=== PATIENT | male | born 1950 | race Two or more races ===

== ENCOUNTER 2016-12-20 23:43 | Inpatient (IN) | payer OTHER ==
[~2016-12-20] VITALS: Ht 170.2 cm; Wt 90.7 kg
--- NOTE | 2016-12-20 23:45 | NUR ---
PT BIB[place] FROM [facility] [place] FOR COUGH AND CONGESTION. PT AOX3 RR EVEN AND UNLABORED. NO SOB NOTED. PT NOTED CONGESTED. NO NVD AT THIS TIME. PT GOWNED AND PLACED ON MONITOR WAITING FOR MD CHAPPELL.
--- NOTE | 2016-12-21 00:12 | NUR ---
IV STARTED ON LEFT AC 18, BLOOD DRAWN AND BLOOD CULTURE COLLECTED.
--- NOTE | 2016-12-21 00:13 | NUR ---
XRAY AT BEDSIDE
[2016-12-21] MEDS ORDERED: ASPI81TA2 PO (00:16)
[2016-12-21] MEDS ORDERED: ALBUTEROL FS 2.5 MG/0.5 ML VIAL.NEB NEB ONE (00:30)
[2016-12-21 00:35] LABS: BASOPHILS % (AUTO) 0.3 % (0.0-2.0); EOSINOPHILS # (AUTO) 0.5 /CMM (0.0-0.7); EOSINOPHILS % (AUTO) 4.2 % (0.0-6.0); HEMATOCRIT 35 % (39-51); HEMOGLOBIN 11.6 g/dL (13.5-17.5); LYMPHOCYTES # (AUTO) 1.8 /CMM (0.8-4.8); LYMPHOCYTES % (AUTO) 15.2 % (20.0-44.0); MEAN CORPUSCULAR HEMOGLOBIN 29 PG (26.0-33.0); MEAN CORPUSCULAR HGB CONC 33 g/dl (31.0-36.0); MEAN CORPUSCULAR VOLUME 87 fL (80-96); MONOCYTES # (AUTO) 0.5 /CMM (0.1-1.30); MONOCYTES % (AUTO) 4.4 % (2.0-12.0); NEUTROPHILS # (AUTO) 9.2 /CMM (1.8-8.9); NEUTROPHILS % (AUTO) 75.9 % (43.0-81.0); PLATELET COUNT (AUTO) 272 /CMM (150-450); RDW COEFFICIENT OF VARIATION 14.9 (11.5-15.0); RED BLOOD CELL COUNT(AUTO) 3.98 MIL/uL (4.5-6.0); WHITE BLOOD COUNT (AUTO) 12.1 K/uL (4.3-11.0)
[2016-12-21] MEDS ORDERED: ALBUTEROL FS 2.5 MG/0.5 ML VIAL.NEB ONE (00:35)
[2016-12-21 00:50] LABS: CALCIUM, SERUM 9.2 mg/dL (8.5-10.1); CARBON DIOXIDE 27 mmol/L (21-32); CHLORIDE 99 mmol/L (98-107); CREATININE 1.4 mg/dL (0.6-1.3); GFR 51 mL/min (>60); GLUCOSE 154 mg/dL (74-106); SODIUM SERUM 133 mmol/L (136-145); UREA NITROGEN, BLOOD 15 mg/dL (7-18)
[2016-12-21 00:52] LABS: TROPONIN I < 0.017 ng/mL (0.00-0.056)
[2016-12-21] MEDS ORDERED: ASCO500C16 PO (00:52)
[2016-12-21] MEDS ORDERED: MAGN400O6 PO (00:52)
[2016-12-21] MEDS ORDERED: SENN8.6T6 PO (00:52)
[2016-12-21] MEDS ORDERED: BACL10TA PO (00:52)
[2016-12-21] MEDS ORDERED: AMLO10TA4 PO (00:52)
[2016-12-21] MEDS ORDERED: SIME80TA15 PO (00:52)
[2016-12-21] MEDS ORDERED: PANT40TA2 PO (00:52)
[2016-12-21] MEDS ORDERED: VITA1TAB34 PO (00:52)
[2016-12-21] MEDS ORDERED: INSU100I19 SQ (00:52)
[2016-12-21] MEDS ORDERED: CHOL100030 PO (00:52)
[2016-12-21] MEDS ORDERED: CLON0.1T PO (00:52)
[2016-12-21] MEDS ORDERED: NA P133E RC (00:52)
[2016-12-21] MEDS ORDERED: BISA10SU61 RC (00:52)
[2016-12-21] MEDS ORDERED: MULT-70 PO (00:52)
[2016-12-21] MEDS ORDERED: DOCU-25 PO (00:52)
[2016-12-21] MEDS ORDERED: ACET-868 PO (00:52)
[2016-12-21] MEDS ORDERED: CITA20TA19 PO (00:52)
[2016-12-21] MEDS ORDERED: LISI-657 PO (00:52)
[2016-12-21 00:55] LABS: INR 0.93 (0.87-1.13)
[2016-12-21 01:05] LABS: ALANINE AMINOTRANSFERASE 30 U/L (12-78); ALBUMIN 3.6 g/dL (3.4-5.0); ALKALINE PHOSPHATASE 92 U/L (46-116); ASPARTATE AMINOTRANSFERASE 13 U/L (15-37); B-TYPE NATRIURETIC PEPTIDE 130 PG/ML (0-125); BILIRUBIN,DIRECT 0.1 mg/dL (0.0-0.2); BILIRUBIN,TOTAL 0.3 mg/dL (0.2-1.0); TOTAL PROTEIN, SERUM 7.4 g/dL (6.4-8.2)
--- NOTE | 2016-12-21 01:06 | NUR ---
URINE COLLECTED. CALLED LAB FOR SENIOR JAVASCRIPT DEVELOPER.
--- NOTE | 2016-12-21 01:34 | NUR ---
REMOVED N/C PER , 02 SAT ROOM AIR 93%. DR. WATERMAN AWARE
[2016-12-21 01:46] LABS: LACTIC ACID 1.9 mmol/L (0.4-2.0)
--- NOTE | 2016-12-21 01:51 | NUR ---
REPORT GIVEN TO HERON GARCIA FOR TELE BED 113-1
[2016-12-21 01:53] LABS: APPEARANCE,URINE CLEAR (CLEAR); BILIRUBIN,URINE NEGATIVE (NEGATIVE); BLOOD, URINE NEGATIVE Ery/uL (NEGATIVE); COLOR,URINE YELLOW (YELLOW); KETONES,URINE NEGATIVE (NEGATIVE); LEUKOCYTE ESTERASE ,URINE TRACE (NEGATIVE); NITRITE, URINE NEGATIVE (NEGATIVE); PROTEIN,URINE NEGATIVE (NEGATIVE); UGLUCOSE NEGATIVE (NEGATIVE); UROBILINOGEN,URINE 0.2 EU/dL (0.2)
[2016-12-21] MEDS ORDERED: IV SET PRIMARY 1 EA INFUS.SET MC ONE (02:00)
[2016-12-21] MEDS ORDERED: IV D5W 50 ML IV ONE (02:00)
[2016-12-21] MEDS ORDERED: CEFTRIAXONE 1 G VIAL ONE (02:00)
[2016-12-21] MEDS ORDERED: CEFTRIAXONE 1GM BAG (ER ONLY) 1 GM/50 ML PIGGYBACK IV ONE (02:00)
--- NOTE | 2016-12-21 03:45 | NUR ---
UNLOADER OPERATOR NOTE RECEIVED PATIENT FROM ER VIA GURNEY, PATIENT IS ALERT AND ORIENTEDX3, ADMITTING DX IS PNA, PATIENT STATED THAT HE IS HAVING DIFFICULTY COUGHING, ON NC 2L/MIN, DENIES PAIN AT THIS TIME. IV ON LEFT AC IS PATENT AND INTACT. MERAZ CATH, CLEAR URINE NOTED. PUT ON TELE MONITOR, SKIN IS INTACT. WILL PUT IN DR. ALVARADO'S ORDER, SRX2, BED IN LOW POSITION, CALL LIGHT WITHIN REACH, WILL CONTINUE TO MONITOR PATIENT.
--- NOTE | 2016-12-21 03:47 | NUR ---
PT TRASNFERED TO [facility] PER [facility] RN'S PER ACLS PROTOCOL.
[2016-12-21 04:00] VITALS: BP 167/87
[2016-12-21] MEDS ORDERED: ALBUTEROL HALF STRENGTH 1.25 MG/3 ML VIAL.NEB NEB PRN (04:00)
[2016-12-21] MEDS ORDERED: IPRATROPIUM NEB FS 0.5 MG/2.5 ML AMPUL.NEB NEB PRN (04:00)
[2016-12-21] MEDS ORDERED: DEXTROSE 50%-WATER 50 ML DISP.SYRIN IV PRN (04:00)
[2016-12-21] MEDS ORDERED: DOXYCYCLINE HYCLATE (100 MG) 100 MG TABLET ONE (04:26)
[2016-12-21] MEDS ORDERED: IPRATROPIUM NEB FS 0.5 MG/2.5 ML AMPUL.NEB ONE (04:27)
[2016-12-21] MEDS ORDERED: ENOXAPARIN SODIUM 40 MG/0.4 ML DISP.SYRIN SQ ONE (04:27)
[2016-12-21] MEDS ORDERED: ALBUTEROL HALF STRENGTH 1.25 MG/3 ML VIAL.NEB ONE (04:29)
[2016-12-21] MEDS: ENOXAPARIN SODIUM 40 MG/0.4 ML DISP.SYRIN SQ SCH (04:35)
[2016-12-21] MEDS: DOXYCYCLINE HYCLATE (100 MG) 100 MG TABLET PO SCH ×2 (04:35→17:20)
[2016-12-21] MEDS: ALBUTEROL HALF STRENGTH 1.25 MG/3 ML VIAL.NEB NEB SCH ×6 (04:38→23:41)
[2016-12-21] MEDS: IPRATROPIUM NEB FS 0.5 MG/2.5 ML AMPUL.NEB NEB SCH ×6 (04:38→23:41)
[2016-12-21] MEDS: BLOOD SUGAR DIAGNOSTIC 1 EACH STRIP VI SCH ×4 (05:44→21:14)
[2016-12-21] MEDS: INSULIN REGULAR, HUMAN 100 UNIT/ML 3 ML VIAL SQ PRN (05:46)
[2016-12-21] MEDS: INSULIN DETEMIR 100 UNIT/ML CARTRIDGE SQ SCH ×3 (05:46→21:17)
[2016-12-21 05:50] LABS: ADD URINE CULTURE NO; BACTERIA,URINE None seen /HPF (None Seen); RBC,URINE NONE SEEN /HPF (0-2); SQUAMOUS EPITHELIAL CELL,UR Few /HPF (None Seen); WBC,URINE 0-2 /HPF (0-3)
--- NOTE | 2016-12-21 06:31 | NUR ---
MANAGER MEDICAL NOTE PATIENT IS RESTING IN BED COMFORTABLY, NO S/S OF RESPIRATORY DISTRESS AND PAIN NOTED. IV ON LEFT FA IS PATENT AND INTACT, HL ONLY. MERAZ CLEAR URINE NOTED. TELE MONITOR SINUS RHYTHM. WILL ENDORSE TO DAY SHIFT NURSE FOR KARL.
[2016-12-21 07:23] LABS: BASOPHILS % (AUTO) 0.3 % (0.0-2.0); EOSINOPHILS # (AUTO) 0.7 /CMM (0.0-0.7); EOSINOPHILS % (AUTO) 6.9 % (0.0-6.0); HEMATOCRIT 35 % (39-51); HEMOGLOBIN 11.5 g/dL (13.5-17.5); LYMPHOCYTES # (AUTO) 1.6 /CMM (0.8-4.8); LYMPHOCYTES % (AUTO) 14.5 % (20.0-44.0); MEAN CORPUSCULAR HEMOGLOBIN 29 PG (26.0-33.0); MEAN CORPUSCULAR HGB CONC 33 g/dl (31.0-36.0); MEAN CORPUSCULAR VOLUME 87 fL (80-96); MONOCYTES # (AUTO) 0.4 /CMM (0.1-1.30); MONOCYTES % (AUTO) 3.8 % (2.0-12.0); NEUTROPHILS # (AUTO) 8.1 /CMM (1.8-8.9); NEUTROPHILS % (AUTO) 74.5 % (43.0-81.0); PLATELET COUNT (AUTO) 273 /CMM (150-450); RDW COEFFICIENT OF VARIATION 15.7 (11.5-15.0); RED BLOOD CELL COUNT(AUTO) 4.01 MIL/uL (4.5-6.0); WHITE BLOOD COUNT (AUTO) 10.8 K/uL (4.3-11.0)
[2016-12-21 07:37] LABS: CREATININE 1.3 mg/dL (0.6-1.3); POTASSIUM 4.2 mmol/L (3.5-5.1)
[2016-12-21 08:00] VITALS: BP 125/68
[2016-12-21] MEDS ORDERED: INSU100V11 SQ (08:00)
--- NOTE | 2016-12-21 08:00 | NUR ---
RN INITIAL NOTE PT RECEIVED IN BED, AWAKE, Ax0 X4, TELE MONITOR SHOWS SR DEGREE AV BLOCK. RESPIRATIONS ARE EVEN AND UNLABORED. SATING WELL ON 2L N/C. SKIN IS WARM AND DRY TO THE TOUCH. IV SITE C/D/I. FLUSHED AND PATENT. NO COMPLAINTS OF PAIN. NO SIGNS OF DISCOMFORT. SAFETY MEASURES IN PLACE, CALL LIGHT WITHIN REACH. WILL CONTINUE TO MONITOR. Addendum: 12/21/16 at 0939 by BRYAN ANDRES RN FIRST DEGREE AV BLOCK
[2016-12-21] MEDS ORDERED: ACETAMINOPHEN 325 MG TABLET PO PRN (10:00)
[2016-12-21] MEDS ORDERED: CLONIDINE HCL 0.1 MG TABLET PO PRN (10:00)
[2016-12-21] MEDS ORDERED: BISACODYL SUPP (10 MG) 10 MG/SUPP.RECT SUPP.RECT RC PRN (10:00)
[2016-12-21] MEDS ORDERED: SIMETHICONE 80 MG TAB.CHEW PO PRN (10:00)
[2016-12-21] MEDS ORDERED: NA PHOS,M-B/NA PHOS,DI-BA 1 EA ENEMA RC PRN (10:00)
[2016-12-21] MEDS ORDERED: INSULIN DETEMIR 100 UNIT/ML CARTRIDGE SQ SCH (10:00)
[2016-12-21] MEDS: MULTIVITAMINS,THERAPEUTIC 1 UDTAB TABLET PO SCH (10:51)
[2016-12-21] MEDS: CHOLECALCIFEROL 1,000 UNIT TABLET (VIT D3) PO SCH (10:51)
[2016-12-21] MEDS: ASPIRIN 81 MG TAB.CHEW PO SCH (10:52)
[2016-12-21] MEDS: CITALOPRAM HYDROBROMIDE 20 MG TABLET PO SCH (10:52)
[2016-12-21] MEDS: VITAMIN B COMP W-C 1 TAB TABLET PO SCH (10:53)
[2016-12-21] MEDS: LISINOPRIL (10MG) 10 MG TABLET PO SCH (10:53)
[2016-12-21] MEDS: AMLODIPINE BESYLATE 10 MG TABLET PO SCH (10:58)
[2016-12-21 12:00] VITALS: BP 127/65
[2016-12-21] MEDS: BACLOFEN (10 MG) 10 MG TABLET PO SCH ×2 (12:45→17:20)
[2016-12-21] MEDS: DOCUSATE SODIUM 100 MG CAPSULE PO SCH ×2 (12:45→17:20)
[2016-12-21] MEDS: *INSULIN REGULAR(HUMULIN R)HUM 100 UNIT/ML VIAL SQ PRN ×2 (12:53→21:18)
[2016-12-21 16:00] VITALS: BP 121/70
--- NOTE | 2016-12-21 16:00 | NUR ---
HERON NOTE CALLED CRISTAL WARNER TO CONFIRM PT'S LEVEMIR DOSAGE. PT RECEIVES 60UNITS ONCE A DAY. Addendum: 12/21/16 at 1911 by DELGADO MYRICK RN [phone] CRISTAL WARNER'S PHONE # SPOKE WITH MELLISSA
[2016-12-21] MEDS: ASCORBIC ACID 500 MG TABLET PO SCH (17:20)
--- NOTE | 2016-12-21 18:43 | NUR ---
RN CLOSING NOTE RN CLOSING NOTE PT RESTING IN BED COMFORTABLY, ALL MD'S ORDERS CARRIED OUT, PT KEPT CLEAN AND DRY, IV SITE C/D/I. ALL SAFETY MEASURES IN PLACE AT ALL TIMES. REPORT WILL BE GIVEN TO PM RN FOR KARL.
[2016-12-21 20:00] VITALS: BP 119/59
[2016-12-21] MEDS: SENNOSIDES 8.6 MG TABLET PO SCH (21:14)
[2016-12-21] MEDS: ATORVASTATIN 10 MG TABLET PO SCH (21:14)
--- NOTE | 2016-12-21 23:41 | NUR ---
RT PT REQUESTED NOT TO WOKEN UP IF SLEEPING IF NO SOB OR DISTRESS IS NOTED. NO SOB OR DISTRESS NOTED ILL CONTINUE TO MONITOR.
[2016-12-22] VITALS: BP 102/57
[2016-12-22] MEDS ORDERED: IV SET PRIMARY PUMP SET 1 EA INFUS.SET MC ONE (02:18)
[2016-12-22] MEDS: CEFTRIAXONE 1 G in IV D5W 50 ML IV SCH (02:20)
[2016-12-22] MEDS: ALBUTEROL HALF STRENGTH 1.25 MG/3 ML VIAL.NEB NEB SCH ×6 (03:54→23:40)
[2016-12-22] MEDS: IPRATROPIUM NEB FS 0.5 MG/2.5 ML AMPUL.NEB NEB SCH ×6 (03:54→23:40)
[2016-12-22] MEDS: ENOXAPARIN SODIUM 40 MG/0.4 ML DISP.SYRIN SQ SCH (03:57)
[2016-12-22 04:01] VITALS: BP 115/62
[2016-12-22] MEDS: BLOOD SUGAR DIAGNOSTIC 1 EACH STRIP VI SCH ×4 (06:31→21:11)
[2016-12-22] MEDS: INSULIN REGULAR, HUMAN 100 UNIT/ML 3 ML VIAL SQ PRN (06:35)
--- NOTE | 2016-12-22 07:30 | NUR ---
initial notes patient is in bed, verbalizing needs, oriented x3. denies pain at this time. breathing even and unlabored with 2l O2 NC. tele monitor reading SR 73 with 1st degree AV block.patient has a butler catheter, patent. no complications. lac iv patent, dressing cdi. assessed needs. discussed plan of care. call light in reach
[2016-12-22 08:00] VITALS: BP 108/69
[2016-12-22] MEDS: CITALOPRAM HYDROBROMIDE 20 MG TABLET PO SCH (08:08)
[2016-12-22] MEDS: DOXYCYCLINE HYCLATE (100 MG) 100 MG TABLET PO SCH ×2 (08:08→17:16)
[2016-12-22] MEDS: VITAMIN B COMP W-C 1 TAB TABLET PO SCH (08:08)
[2016-12-22] MEDS: LISINOPRIL (10MG) 10 MG TABLET PO SCH (08:08)
[2016-12-22] MEDS: DOCUSATE SODIUM 100 MG CAPSULE PO SCH ×3 (08:09→17:14)
[2016-12-22] MEDS: PANTOPRAZOLE 40 MG TABLET.DR PO SCH (08:09)
[2016-12-22] MEDS: AMLODIPINE BESYLATE 10 MG TABLET PO SCH (08:09)
[2016-12-22] MEDS: BACLOFEN (10 MG) 10 MG TABLET PO SCH ×3 (08:09→17:14)
[2016-12-22] MEDS: CHOLECALCIFEROL 1,000 UNIT TABLET (VIT D3) PO SCH (08:09)
[2016-12-22] MEDS: ASCORBIC ACID 500 MG TABLET PO SCH (08:09)
[2016-12-22] MEDS: MULTIVITAMINS,THERAPEUTIC 1 UDTAB TABLET PO SCH (08:09)
[2016-12-22] MEDS: INSULIN DETEMIR 100 UNIT/ML CARTRIDGE SQ SCH ×2 (08:10→21:13)
[2016-12-22] MEDS: ASPIRIN 81 MG TAB.CHEW PO SCH (08:10)
[2016-12-22 12:00] VITALS: BP 105/55
[2016-12-22] MEDS: *INSULIN REGULAR(HUMULIN R)HUM 100 UNIT/ML VIAL SQ PRN ×3 (12:28→21:14)
[2016-12-22] MEDS: MAGNESIUM HYDROXIDE 30 ML UDC PO PRN (12:35)
[2016-12-22 16:00] VITALS: BP 117/57
[2016-12-22] MEDS: LACTOBACILLUS RHAMNOSUS GG 1 EACH CAP.SPRINK PO SCH (17:14)
--- NOTE | 2016-12-22 19:39 | NUR ---
RN CLOSING NOTES LEFT PATIENT IN STABLE CONDITION. CHANGED MERAZ CATHERTER USING STERILE TECHNIQUE.S PATIENT TOLERATED PROCEDURE. HANDED OFF REPORT CALL LIGHT IN REACH,.
[2016-12-22 20:00] VITALS: BP 144/74
[2016-12-22] MEDS: SENNOSIDES 8.6 MG TABLET PO SCH (21:11)
[2016-12-22] MEDS: ATORVASTATIN 10 MG TABLET PO SCH (21:11)
[2016-12-23] VITALS: BP 108/62
[2016-12-23] MEDS: ENOXAPARIN SODIUM 40 MG/0.4 ML DISP.SYRIN SQ SCH (03:18)
[2016-12-23] MEDS: CEFTRIAXONE 1 G in IV D5W 50 ML IV SCH (03:18)
[2016-12-23 04:00] VITALS: BP 145/74
[2016-12-23] MEDS: ALBUTEROL HALF STRENGTH 1.25 MG/3 ML VIAL.NEB NEB SCH ×6 (04:00→23:31)
[2016-12-23] MEDS: IPRATROPIUM NEB FS 0.5 MG/2.5 ML AMPUL.NEB NEB SCH ×6 (04:00→23:31)
[2016-12-23] MEDS: BLOOD SUGAR DIAGNOSTIC 1 EACH STRIP VI SCH (06:34)
[2016-12-23] MEDS: INSULIN REGULAR, HUMAN 100 UNIT/ML 3 ML VIAL SQ PRN ×3 (06:35→17:58)
[2016-12-23 07:38] LABS: CALCIUM, SERUM 9.6 mg/dL (8.5-10.1); CREATININE 1.2 mg/dL (0.6-1.3); POTASSIUM 4.5 mmol/L (3.5-5.1)
[2016-12-23] MEDS: BACLOFEN (10 MG) 10 MG TABLET PO SCH ×3 (08:03→16:11)
[2016-12-23] MEDS: PANTOPRAZOLE 40 MG TABLET.DR PO SCH (08:03)
[2016-12-23] MEDS: METFORMIN 500 MG TABLET PO SCH (08:03)
[2016-12-23] MEDS: CHOLECALCIFEROL 1,000 UNIT TABLET (VIT D3) PO SCH (08:03)
[2016-12-23] MEDS: DOXYCYCLINE HYCLATE (100 MG) 100 MG TABLET PO SCH ×2 (08:03→16:11)
[2016-12-23] MEDS: VITAMIN B COMP W-C 1 TAB TABLET PO SCH (08:03)
[2016-12-23] MEDS: CITALOPRAM HYDROBROMIDE 20 MG TABLET PO SCH (08:04)
[2016-12-23] MEDS: ASPIRIN 81 MG TAB.CHEW PO SCH (08:04)
[2016-12-23] MEDS: LACTOBACILLUS RHAMNOSUS GG 1 EACH CAP.SPRINK PO SCH ×2 (08:04→16:11)
[2016-12-23] MEDS: LISINOPRIL (10MG) 10 MG TABLET PO SCH (08:04)
[2016-12-23] MEDS: DOCUSATE SODIUM 100 MG CAPSULE PO SCH ×3 (08:06→16:11)
[2016-12-23] MEDS: INSULIN DETEMIR 100 UNIT/ML CARTRIDGE SQ SCH ×2 (08:09→21:21)
[2016-12-23 09:13] VITALS: BP 123/63
[2016-12-23 13:04] VITALS: BP 125/60
--- NOTE | 2016-12-23 13:05 | NUR ---
ADDENDUM V/S AT 0900 WAS TAKEN PT. SITTING ON BED.
--- NOTE | 2016-12-23 13:07 | NUR ---
PT. CONSTIPATED WILL GIVE PRN MEDS.
[2016-12-23] MEDS: MAGNESIUM HYDROXIDE 30 ML UDC PO PRN (13:55)
--- NOTE | 2016-12-23 15:00 | NUR ---
ENCOURAGED PT. TO TURN PER PT. HE IS COMFORTABLE SITTING AND NOT ON SIDE POSITION,EXPLAINED IMPORATANCE OF TURNING TO PREVENT SORE,WILL APPLY SKIN OINMENT TO PREVENT SORE.
--- NOTE | 2016-12-23 16:23 | NUR ---
pt. still no bm post dulcolax supp given.per pt. will wait vianey would like to take senokot vianey will endorse.
[2016-12-23 16:24] VITALS: BP 123/60
--- NOTE | 2016-12-23 18:02 | NUR ---
addendum on urine output entered 2400 twice in am.
--- NOTE | 2016-12-23 19:15 | NUR ---
RN INITIAL NOTES RECEIVED PATIENT IN BED, AWAKE AND ALERT. PATIENT DENIES ANY PAIN AND DISCOMFORT AT THIS TIME. ON 2LPM OF O2 VIA NC, RESPIRATION IS EVEN AND UNLABORED WITH NO DISTRESS NOTED. L AC G18, FLUSHED AND PATENT, NO SIGNS OF INFILTRATION NOTED. PATIENT NOTED WITH PRODUCTIVE COUGH AT THIS TIME, ABLE TO EXPECTORATE, NO DISTRESS. PATIENT ABLE TO MOVE HIS BOWELS, X1, LARGE. PATIENT PROVIDED WITH GOOD PERICARE, NO ABDOMINAL DISCOMFORT VERBALIZED. F/C INTACT AND DRAINING WELL WITH CLEAR, YELLOW URINE. PATIENT'S NEEDS ANTICIPATED AND MET. SAFETY AND COMFORT ENSURED. BED IN LOW AND LOCKED POSITION. CALL LIGHT IN REACH. WILL MONITOR.
[2016-12-23 20:00] VITALS: BP 128/74
[2016-12-23] MEDS: SENNOSIDES 8.6 MG TABLET PO SCH (21:21)
[2016-12-23] MEDS: ATORVASTATIN 10 MG TABLET PO SCH (21:21)
[2016-12-24] MEDS: CEFTRIAXONE 1 G in IV D5W 50 ML IV SCH (01:01)
[2016-12-24] MEDS: IPRATROPIUM NEB FS 0.5 MG/2.5 ML AMPUL.NEB NEB SCH ×5 (03:27→20:20)
[2016-12-24] MEDS: ALBUTEROL HALF STRENGTH 1.25 MG/3 ML VIAL.NEB NEB SCH ×5 (03:28→20:20)
[2016-12-24 04:00] VITALS: BP 117/76
[2016-12-24] MEDS: ENOXAPARIN SODIUM 40 MG/0.4 ML DISP.SYRIN SQ SCH (05:16)
--- NOTE | 2016-12-24 06:46 | NUR ---
RN CLOSING NOTES PATIENT WITH NO ACUTE DISTRESS OBSERVED OVERNIGHT. OCCASIONAL EPISODES OF COUGHING NOTED, BREATHING TREATMENT GIVEN ORDERED, PATIENT COMPLIANT. PATIENT'S NEEDS ANTICIPATED AND MET. PATIENT KEPT CLEAN AND DRY. F/C INTACT AND DRAINING WELL. GOOD PERICARE AT ALL TIMES. TURNED AND REPOSITIONED. ALL DUE MEDS GIVEN ORDERED. NEEDS ANTICIPATED AND MET. SAFETY AND COMFORT ENSURED. BED IN LOW AND LOCKED POSITION. CALL LIGHT IN REACH. WILL ENDORSE ACCORDINGLY FOR CONTINUITY OF CARE.
--- NOTE | 2016-12-24 07:36 | NUR ---
MS RN NOTE RECEIVED REPORT FROM IRRIGATOR VALVE PIPE NURSE. PT RESTING COMFORTABLY IN BED, WITH NO APPARENT DISTRESS. DENIES COMPLAINTS. WILL CONTINUE TO MONITOR.
[2016-12-24 08:00] VITALS: BP 135/77
[2016-12-24 08:07] LABS: CALCIUM, SERUM 9.3 mg/dL (8.5-10.1); CREATININE 1.3 mg/dL (0.6-1.3); POTASSIUM 4.5 mmol/L (3.5-5.1)
[2016-12-24] MEDS: METFORMIN 500 MG TABLET PO SCH (08:22)
[2016-12-24] MEDS: DOCUSATE SODIUM 100 MG CAPSULE PO SCH ×3 (08:22→16:42)
[2016-12-24] MEDS: DOXYCYCLINE HYCLATE (100 MG) 100 MG TABLET PO SCH ×2 (08:22→16:42)
[2016-12-24] MEDS: CHOLECALCIFEROL 1,000 UNIT TABLET (VIT D3) PO SCH (08:22)
[2016-12-24] MEDS: LACTOBACILLUS RHAMNOSUS GG 1 EACH CAP.SPRINK PO SCH ×2 (08:22→16:42)
[2016-12-24] MEDS: BACLOFEN (10 MG) 10 MG TABLET PO SCH ×3 (08:22→16:42)
[2016-12-24] MEDS: PANTOPRAZOLE 40 MG TABLET.DR PO SCH (08:22)
[2016-12-24] MEDS: VITAMIN B COMP W-C 1 TAB TABLET PO SCH (08:22)
[2016-12-24] MEDS: ASPIRIN 81 MG TAB.CHEW PO SCH (08:22)
[2016-12-24] MEDS: LISINOPRIL (10MG) 10 MG TABLET PO SCH (08:23)
[2016-12-24] MEDS: BLOOD SUGAR DIAGNOSTIC 1 EACH STRIP VI SCH (08:23)
[2016-12-24] MEDS: Z GUARD REMEDY 2 OZ OINT TP SCH (08:23)
[2016-12-24] MEDS: INSULIN DETEMIR 100 UNIT/ML CARTRIDGE SQ SCH ×2 (08:25→21:18)
[2016-12-24] MEDS: CITALOPRAM HYDROBROMIDE 20 MG TABLET PO SCH (09:28)
[2016-12-24 16:00] VITALS: BP 120/67
--- NOTE | 2016-12-24 18:38 | NUR ---
MS RN NOTE PT RESTING COMFORTABLY IN BED, WITH NO APPARENT DISTRESS. DENIES COMPLAINTS. PT ON 2L NC, NO SOB. F/C INTACT AND PATENT. WILL ENDORSE TO DOFFER RN FOR KARL.
--- NOTE | 2016-12-24 19:30 | NUR ---
MS RN OPENING NOTES: PATIENT IN BED, AOX4, ON O2 AT 2 LPM VIA NC. BREATHING EVEN AND UNLABORED. BREATH SOUNDS CLEAR TO AUSCULTATION. DENIES ANY PAIN OR DIFFICULTY BREATHING. PATIENT HAS MERAZ CATHETER DRAINING CLEAR YELLOW URINE. PIV ACCESS OVER LAC G 18 INTACT AND PATENT TO FLUSH. PROVIDED FOR COMFORT AND SAFETY. WILL CONT TO MONITOR.
[2016-12-24 20:00] VITALS: BP 141/77
[2016-12-24] MEDS: ATORVASTATIN 10 MG TABLET PO SCH (21:17)
[2016-12-24] MEDS: SENNOSIDES 8.6 MG TABLET PO SCH (21:17)
[2016-12-24] MEDS: *INSULIN REGULAR(HUMULIN R)HUM 100 UNIT/ML VIAL SQ PRN (21:19)
--- NOTE | 2016-12-24 22:15 | NUR ---
RNN OTES: PATIENT'S BLOOD SUGAR CHECKED AT 190 MG/DL. ADMINSTERED SCHEDULED LEVEMIR 30 UNITS WITH REGULAR INSULIN 3 UNITS SQ. WILL CONT TO MONITOR.
[2016-12-25] MEDS: CEFTRIAXONE 1 G in IV D5W 50 ML IV SCH (01:21)
[2016-12-25] MEDS: ENOXAPARIN SODIUM 40 MG/0.4 ML DISP.SYRIN SQ SCH (03:40)
[2016-12-25] MEDS: IPRATROPIUM NEB FS 0.5 MG/2.5 ML AMPUL.NEB NEB SCH ×4 (03:59→10:31)
[2016-12-25] MEDS: ALBUTEROL HALF STRENGTH 1.25 MG/3 ML VIAL.NEB NEB SCH ×4 (03:59→10:31)
--- NOTE | 2016-12-25 06:56 | NUR ---
MS RN CLOSING NOTES: PATIENT IN BED, AOX4, ON O2 AT 2 LPM VIA NC, BREATHING EVEN AND UNLABORED. NOTED OCCASIONAL NON PRODUCTIVE COUGH. APPEARS CALM AND IN NO DISTRESS, DENIES PAIN OR DIFFICULTY IN BREATHING. MERAZ CATHETER IN PLACE DRAINING CLEAR YELLOW URINE, DRAINED TOTAL OF 2000 ML THROUGH SHIFT. PIV ACCESS OVER LAC G 18 INTACT AND PATENT TO FLUSH. DUE MEDS GIVEN, PROVIDED FOR COMFORT AND SAFETY, TURNED AND REPOSITIONED. NO ACUTE CHANGE IN CONDITION NOTED THROUGH SHIFT. WILL ENDORSE TO AM RN FOR KARL.
--- NOTE | 2016-12-25 07:15 | NUR ---
RN INITIAL NOTES: Received patient on bed during rounds, awake, alert x3-4, german speaking able to make needs known, call lights placed within reached, needs attended and anticipated. With IV Plug over LAC, flushed with NS and patent. With Godinez Catheter in placed draining with yellow urine, no sediments, no hematuria, no foul odor noted. HOB elevated, aspiration precaution observed. NO SOB, No LOC, respirations are even and unlabored, no acute distress noted. Kept clean and dry. Provided safety and comfort measures. Bed low and locked position, fall precaution observed. Will turn and reposition, offload heels as per protocol. Suction secretions PRN. Possible home today. To continue to monitor accordingly.
[2016-12-25 07:17] LABS: CALCIUM, SERUM 9.3 mg/dL (8.5-10.1); CREATININE 1.1 mg/dL (0.6-1.3); POTASSIUM 4.5 mmol/L (3.5-5.1)
[2016-12-25 08:00] VITALS: BP 105/64
[2016-12-25] MEDS: LACTOBACILLUS RHAMNOSUS GG 1 EACH CAP.SPRINK PO SCH (08:58)
[2016-12-25] MEDS: METFORMIN 500 MG TABLET PO SCH (08:58)
[2016-12-25] MEDS: DOCUSATE SODIUM 100 MG CAPSULE PO SCH (08:58)
[2016-12-25] MEDS: CITALOPRAM HYDROBROMIDE 20 MG TABLET PO SCH (08:58)
[2016-12-25] MEDS: BACLOFEN (10 MG) 10 MG TABLET PO SCH (08:58)
[2016-12-25] MEDS: ASPIRIN 81 MG TAB.CHEW PO SCH (08:58)
[2016-12-25] MEDS: LISINOPRIL (10MG) 10 MG TABLET PO SCH (08:59)
[2016-12-25 09:00] VITALS: BP 110/62
[2016-12-25] MEDS: VITAMIN B COMP W-C 1 TAB TABLET PO SCH (09:02)
[2016-12-25] MEDS: CHOLECALCIFEROL 1,000 UNIT TABLET (VIT D3) PO SCH (09:02)
[2016-12-25] MEDS: DOXYCYCLINE HYCLATE (100 MG) 100 MG TABLET PO SCH (09:04)
[2016-12-25] MEDS: PANTOPRAZOLE 40 MG TABLET.DR PO SCH (09:04)
[2016-12-25] MEDS: BLOOD SUGAR DIAGNOSTIC 1 EACH STRIP VI SCH (09:07)
[2016-12-25] MEDS: INSULIN DETEMIR 100 UNIT/ML CARTRIDGE SQ SCH (09:08)
[2016-12-25] MEDS: Z GUARD REMEDY 2 OZ OINT TP SCH (09:09)
--- NOTE | 2016-12-25 10:15 | NUR ---
RN NOTES: Patient informed back to Renny Luu, given dc instruction translated by crew truck driver all home instruction explained and signed, able to verbalized understanding.
--- NOTE | 2016-12-25 10:55 | NUR ---
RN NOTES: Patient dc at this time in stable condition accompanied by motor coach bus driver, no signs and symptoms of distress noted. No pain or discomfort noted. Left the unit at this time, IV Plug over LAc intact, no infiltration noted. Report given by HERON SHARPE to HERON Nuñez, all queries answered.
== END 2016-12-25 10:53 | DRG 720 ==
LOC: ER 23:49 → TELE1 12-21 02:28 → MEDSG1 12-23 11:28
PROVIDERS: ADMIT Internal Medicine; ATTEND Internal Medicine
DX: A41.9 Sepsis, unspecified organism (principal); J69.0 Pneumonitis due to inhalation of food and vomit; G82.20 Paraplegia, unspecified; E11.22 Type 2 diabetes mellitus with diabetic chronic kidney disease; I25.10 Atherosclerotic heart disease of native coronary artery without angina pectoris; E55.9 Vitamin D deficiency, unspecified; I12.9 Hypertensive chronic kidney disease with stage 1 through stage 4 chronic kidney disease, or unspecified chronic kidney disease; N18.2 Chronic kidney disease, stage 2 (mild); Z87.891 Personal history of nicotine dependence; J44.9 Chronic obstructive pulmonary disease, unspecified
CPT/HCPCS: 36415; 71010-TC; 80048-TC; 80076-TC; 81000-TC; 82962-TC; 83605-TC; 83880; 84484-TC; 85025-TC; 85730-TC; 87040-TC; 87081-TC; 94799-TC; A4606; J0696; J1650; J1815; J7060; Z7610

== ENCOUNTER 2017-01-03 14:41 | Inpatient (IN) | payer OTHER ==
[~2017-01-03] VITALS: Ht 170.2 cm; Wt 99.8 kg
[~2017-01-03 14:41] MED LIST: ACET-868 PO; AMLO10TA4 PO; ASCO500C16 PO; ASPI81TA2 PO; BACL10TA PO; BISA10SU61 RC; CHOL100030 PO; CITA20TA19 PO; CLON0.1T PO; DOCU-25 PO; INSU100I19 SQ; INSU100V11 SQ; LISI-657 PO; MAGN400O6 PO; MULT-70 PO; NA P133E RC; PANT40TA2 PO; SENN8.6T6 PO; SIME80TA15 PO; VITA1TAB34 PO
--- NOTE | 2017-01-03 15:00 | NUR ---
PT BIB [facility] C/O PRODUCTIVE COUGH AND CONGESTION X3 MONTHS. PT STATES HE HAD PNA RECENTLY AND "THE COUGH WAS THE SAME". DOES NOT KNOW COLOR OF SPUTUM. RESP EVEN UNLABORED; SATTING 95% ON ROOM AIR. NAD NOTED. SKIN WARM NONDIAPHORETIC. MERAZ CATH PRESENT INSPECTOR SHEET METAL PARTS. IN ER BED 12 ON MONITOR.
[2017-01-03] MEDS ORDERED: IPRA0.2S9 IH (15:04)
[2017-01-03] MEDS ORDERED: CHOL100044 PO (15:04)
[2017-01-03] MEDS ORDERED: ENOX40DI SQ (15:04)
[2017-01-03] MEDS ORDERED: ALBU2.5V13 IH (15:04)
--- NOTE | 2017-01-03 15:35 | NUR ---
IV ACCECSS ESTABLISHED AND LABS DRAWN FROM LINE; SENT TO LAB. URINE SAMPLE OBTAINED FROM MERAZ PORT.
[2017-01-03 15:43] LABS: BASOPHILS # (AUTO) 0.1 /CMM (0.0-0.2); BASOPHILS % (AUTO) 0.3 % (0.0-2.0); EOSINOPHILS # (AUTO) 0.4 /CMM (0.0-0.7); EOSINOPHILS % (AUTO) 2.3 % (0.0-6.0); HEMATOCRIT 31 % (39-51); HEMOGLOBIN 10.6 g/dL (13.5-17.5); LYMPHOCYTES # (AUTO) 2.1 /CMM (0.8-4.8); LYMPHOCYTES % (AUTO) 12.3 % (20.0-44.0); MEAN CORPUSCULAR HEMOGLOBIN 30 PG (26.0-33.0); MEAN CORPUSCULAR HGB CONC 34 g/dl (31.0-36.0); MEAN CORPUSCULAR VOLUME 86 fL (80-96); MONOCYTES # (AUTO) 0.6 /CMM (0.1-1.30); MONOCYTES % (AUTO) 3.8 % (2.0-12.0); NEUTROPHILS # (AUTO) 13.8 /CMM (1.8-8.9); NEUTROPHILS % (AUTO) 81.3 % (43.0-81.0); PLATELET COUNT (AUTO) 261 /CMM (150-450); RDW COEFFICIENT OF VARIATION 14.1 (11.5-15.0)
--- NOTE | 2017-01-03 15:56 | NUR ---
CALLED NURSING SUP. FOR TELE BED
[2017-01-03 16:00] LABS: APPEARANCE,URINE Clear (CLEAR); BILIRUBIN,URINE Negative (NEGATIVE); BLOOD, URINE Trace-intact Ery/uL (NEGATIVE); COLOR,URINE Yellow (YELLOW); KETONES,URINE Negative (NEGATIVE); LEUKOCYTE ESTERASE ,URINE Large (NEGATIVE); NITRITE, URINE Negative (NEGATIVE); PROTEIN,URINE Negative (NEGATIVE); UGLUCOSE Negative (NEGATIVE); UROBILINOGEN,URINE 0.2 EU/dL (0.2)
[2017-01-03 16:01] LABS: LACTIC ACID 0.9 mmol/L (0.4-2.0); RBC,URINE 0-2 /HPF (0-2)
[2017-01-03 16:02] LABS: ADD URINE CULTURE YES; BACTERIA,URINE Few /HPF (None Seen); CALCIUM, SERUM 8.6 mg/dL (8.5-10.1); CREATININE 1.4 mg/dL (0.6-1.3); POTASSIUM 4.6 mmol/L (3.5-5.1); SQUAMOUS EPITHELIAL CELL,UR Rare /HPF (None Seen)
[2017-01-03 16:03] LABS: PROTHROMBIN TIME 10.4 SECS (9.5-12.7)
[2017-01-03 16:09] LABS: TROPONIN I < 0.017 ng/mL (0.00-0.056)
[2017-01-03 16:13] LABS: BILIRUBIN,TOTAL 0.2 mg/dL (0.2-1.0)
[2017-01-03 16:14] LABS: TOTAL PROTEIN, SERUM 7.2 g/dL (6.4-8.2)
--- NOTE | 2017-01-03 16:19 | NUR ---
PT GOING TO TELE 116-2, WILLIAM
[2017-01-03 16:21] LABS: BILIRUBIN,DIRECT 0.1 mg/dL (0.0-0.2)
--- NOTE | 2017-01-03 17:03 | NUR ---
REPORT GIVEN TO KALEY SHELBY FOR ADMISSION. PER KALEY, ROOM IS NOT READY YET.
--- NOTE | 2017-01-03 17:22 | NUR ---
PT TRANSPORTED TO RM 120-1 IN STABLE CONDITION VIA ACLS PROTOCOL
[2017-01-03 17:30] VITALS: BP 123/63
--- NOTE | 2017-01-03 18:52 | NUR ---
RN INITIAL NOTES: Received patient from ER per michael AT 1730HRS in stable condition, alert and oriented x4, able to make needs known, needs anticipated and attended. Patient instructed to press call light when in need of any assistance, verbalized understanding. On RA saturating well at 96%. With left forearm IV Plug G20 SL flushed with NS and patent. On Telemonitoring Sinus rhythm at 82bpm. NO SOB, No LOC, respirations are even and unlabored, no acute distress noted. Kept clean and dry. Provided safety and comfort measures. Bed low and locked position, fall precaution observed. Turned and repositioned, offload heels as per protocol. Encouraged increased oral fluid intake as ordered. Dr. Quiroga noted of admission, he noted to do medication reconciliations. NO SCD's as per Dr. Quiroga. Skin assessment done. To continue to monitor accordingly and endorsed to next shift for continuity of care..
--- NOTE | 2017-01-03 19:30 | NUR ---
RN NOTES: Spoke with Dr. Quiroga at 1920hrs, clarified all medication reconciliation and endorsed to HERON Chowdhury to order and place the order.
[2017-01-03 20:00] VITALS: BP 112/55
[2017-01-03] MEDS ORDERED: CLONIDINE HCL 0.1 MG TABLET PO PRN (20:00)
[2017-01-03] MEDS ORDERED: SIMETHICONE 80 MG TAB.CHEW PO PRN (20:00)
[2017-01-03] MEDS ORDERED: ALBUTEROL FS 2.5 MG/0.5 ML VIAL.NEB IH PRN (20:00)
[2017-01-03] MEDS ORDERED: IPRATROPIUM NEB FS 0.5 MG/2.5 ML AMPUL.NEB IH PRN (20:00)
--- NOTE | 2017-01-03 20:00 | NUR ---
received pt from day shift, alert, follows commands, SR, RA, lungs clear, no edema, paraplegic BLLE flaccid, tolerates diet, f/c good output, 1BM, v/s stable, no pain, pt turned and repositioned.
[2017-01-03] MEDS ORDERED: ACETAMINOPHEN 325 MG TABLET PO PRN (20:30)
[2017-01-03] MEDS ORDERED: BISACODYL (5 MG) 5 MG TABLET.DR PO PRN (20:30)
[2017-01-03] MEDS ORDERED: NA PHOS,M-B/NA PHOS,DI-BA 1 EA ENEMA RC PRN (20:30)
[2017-01-03] MEDS ORDERED: DEXTROSE 50%-WATER 50 ML DISP.SYRIN IV PRN (20:30)
[2017-01-03] MEDS ORDERED: IV SET PRIMARY PUMP SET 1 EA INFUS.SET MC ONE (21:17)
[2017-01-03] MEDS: CEFTRIAXONE 1 G in IV D5W 50 ML IV SCH (21:22)
[2017-01-03] MEDS: BLOOD SUGAR DIAGNOSTIC 1 EACH STRIP IN SCH (21:23)
[2017-01-03] MEDS: INSULIN DETEMIR 100 UNIT/ML CARTRIDGE SQ SCH (21:23)
[2017-01-03] MEDS: SENNOSIDES 8.6 MG TABLET PO SCH (21:27)
[2017-01-04] VITALS: BP 103/56
[2017-01-04 04:00] VITALS: BP 109/64
--- NOTE | 2017-01-04 04:29 | NUR ---
pt is resting in the bed, v/s stable, no pain, pt cleaned, changed and repositioned q2hrs.
[2017-01-04 06:38] LABS: CALCIUM, SERUM 9.1 mg/dL (8.5-10.1); CREATININE 1.4 mg/dL (0.6-1.3); POTASSIUM 4.3 mmol/L (3.5-5.1)
[2017-01-04 06:47] LABS: BASOPHILS # (AUTO) 0.1 /CMM (0.0-0.2); BASOPHILS % (AUTO) 0.5 % (0.0-2.0); EOSINOPHILS # (AUTO) 0.5 /CMM (0.0-0.7); EOSINOPHILS % (AUTO) 4.6 % (0.0-6.0); HEMATOCRIT 32 % (39-51); HEMOGLOBIN 10.7 g/dL (13.5-17.5); LYMPHOCYTES # (AUTO) 1.9 /CMM (0.8-4.8); LYMPHOCYTES % (AUTO) 17.3 % (20.0-44.0); MEAN CORPUSCULAR HEMOGLOBIN 29 PG (26.0-33.0); MEAN CORPUSCULAR HGB CONC 33 g/dl (31.0-36.0); MEAN CORPUSCULAR VOLUME 87 fL (80-96); MONOCYTES # (AUTO) 0.6 /CMM (0.1-1.30); MONOCYTES % (AUTO) 5.1 % (2.0-12.0); NEUTROPHILS % (AUTO) 72.5 % (43.0-81.0); PLATELET COUNT (AUTO) 289 /CMM (150-450); RDW COEFFICIENT OF VARIATION 15.1 (11.5-15.0); RED BLOOD CELL COUNT(AUTO) 3.73 MIL/uL (4.5-6.0)
[2017-01-04 08:00] VITALS: BP 101/50
--- NOTE | 2017-01-04 08:00 | NUR ---
TELE1/RN AM SHIFT INITIAL NOTES RECEIVED PT AWAKE SITTING IN BED. PT A/O X 4, DENIES PAIN, NO ACUTE RESPIRATORY DISTRESS OR FEVER NOTED. ON 2L O2 VIA N/C SATURATING @ 99%, LUNG SOUNDS DIMINISHED. ON TELE WITH SINUS RHYTHM, HR 63. IV SITE FLUSHED, PATENT WITH NO S/S OF INFECTION, SL. MERAZ CATHETER NOTED WITH CLEAR YELLOW URINE OUTPUT. PT IS COMFORTABLE AT THIS TIME. SCHEDULED AM MEDS TO BE GIVEN. CL WITHIN REACHED AND SAFETY MAINTAINED. ON GOING MONITORING.
[2017-01-04] MEDS: BLOOD SUGAR DIAGNOSTIC 1 EACH STRIP IN SCH ×4 (08:42→21:35)
[2017-01-04] MEDS: DOCUSATE SODIUM 100 MG CAPSULE PO SCH ×3 (08:44→16:57)
[2017-01-04] MEDS: BACLOFEN (10 MG) 10 MG TABLET PO SCH ×3 (08:44→16:57)
[2017-01-04] MEDS: CHOLECALCIFEROL 1,000 UNIT TABLET (VIT D3) PO SCH (08:44)
[2017-01-04] MEDS: LOSARTAN POTASSIUM 25 MG TABLET PO SCH ×2 (08:44→17:05)
[2017-01-04] MEDS: PANTOPRAZOLE 40 MG TABLET.DR PO SCH (08:44)
[2017-01-04] MEDS: ASPIRIN 81 MG TAB.CHEW PO SCH (08:45)
[2017-01-04] MEDS: CITALOPRAM HYDROBROMIDE 20 MG TABLET PO SCH (08:47)
[2017-01-04] MEDS: ENOXAPARIN SODIUM 40 MG/0.4 ML DISP.SYRIN SQ SCH (08:48)
[2017-01-04] MEDS: INSULIN DETEMIR 100 UNIT/ML CARTRIDGE SQ SCH ×2 (08:48→21:49)
[2017-01-04] MEDS ORDERED: CHOLECALCIFEROL 1,000 UNIT TABLET (VIT D3) PO SCH (09:00)
[2017-01-04] MEDS ORDERED: AMLODIPINE BESYLATE 10 MG TABLET PO SCH (09:00)
--- NOTE | 2017-01-04 09:46 | NUR ---
WOUND CARE CONSULT: PT PRESENTS WITH PARAPLEGIA. PT ABLE TO ASSIST WITH TURNING AND REPOSITIONING IN BED (USING UPPER BODY STRENGTH). RECOMMEND ISOFLEX LOW AIRLOSS BED. ALL SKIN PROTECTION RECOMMENDATIONS DISCUSSED WITH NURSING STAFF. MARIYA TAYLOR IN USE. IN AGREEMENT WITH PLAN OF CARE. Addendum: 01/04/17 at 0950 by VILMA DAWSON WNDNU Amended: Links added.
[2017-01-04] MEDS ORDERED: Z GUARD REMEDY 2 OZ OINT TP PRN (10:00)
--- NOTE | 2017-01-04 12:00 | NUR ---
MS1/RN NOON ROUNDS NO ACUTE CHANGE OF CONDITION. PT IS COMFORTABLE. MONITORING CONTINUED.
[2017-01-04] MEDS: INSULIN ASPART NOVOLOG 100 UNIT/ML CARTRIDGE SQ PRN ×2 (12:17→21:49)
[2017-01-04 16:00] VITALS: BP 105/57
--- NOTE | 2017-01-04 16:00 | NUR ---
MS1/RN AFTERNOON ROUNDS PT REPOSITIONED, NO CHANGE OF CONDITION. MONITORING CONTINUED.
[2017-01-04] MEDS: methylPREDNISolone SOD SUCC 125 MG/2ML VIAL IV SCH (16:56)
--- NOTE | 2017-01-04 17:16 | NUR ---
MS1 RN NOTE BS 104 NO COVERAGE GIVEN PER SLIDING SCALE
[2017-01-04] MEDS ORDERED: IPRATROPIUM NEB FS 0.5 MG/2.5 ML AMPUL.NEB IH SCH (18:00)
--- NOTE | 2017-01-04 19:21 | NUR ---
MS1/RN AM SHIFT END NOTES NO ACUTE CHANGE OF CONDITION NOTED WITH PT THROUGHOUT THE SHIFT. NEEDS MET. MERAZ CATHETER INTACT, WELL IV SITE, PATENT, NO S/S OF INFECTION, SL. PT ENDORSED TO PM NURSE TO CONTINUE CARE. CL WITHIN REACHED AND SAFETY MAINTAINED.
[2017-01-04] MEDS: ALBUTEROL FS 2.5 MG/0.5 ML VIAL.NEB IH SCH (19:30)
--- NOTE | 2017-01-04 19:30 | NUR ---
MS RN INITIAL NOTE PT A/O X4 AND ABLE TO MAKE NEEDS KNOWN. ON 2L OF O2 VIA NASAL CANNULA AND SATING WELL. MERAZ CATHETER PATENT AND DRAINING BY GRAVITY. IV SITE LFA #20 SL CLEAN, DRY, INTACT AND FLUSHING WELL. ALL SAFETY MEASURES IN PLACE. CALL LIGHT WITHIN REACH. BED IN LOWEST POSITION AND LOCKED. WILL CONTINUE TO MONITOR.
[2017-01-04 20:00] VITALS: BP 110/56
[2017-01-04] MEDS: SENNOSIDES 8.6 MG TABLET PO SCH (21:35)
[2017-01-04] MEDS: CEFTRIAXONE 1 G in IV D5W 50 ML IV SCH (21:36)
[2017-01-04] MEDS ORDERED: ENOXAPARIN SODIUM 30 MG/0.3 ML DISP.SYRIN SQ SCH (22:30)
[2017-01-04] MEDS ORDERED: hydrALAZINE HCL 25 MG TABLET PO SCH (22:30)
[2017-01-04] MEDS ORDERED: ONDANSETRON HCL/PF 4 MG/2 ML VIAL IV PRN (22:30)
[2017-01-04] MEDS ORDERED: ACETAMINOPHEN 325 MG TABLET PO PRN (22:30)
--- NOTE | 2017-01-05 01:12 | NUR ---
RT UNAWARE OF Q6 HHN TX. WILL CONTINUE ON NEXT SCHEDULED TIME.
[2017-01-05] MEDS: ALBUTEROL FS 2.5 MG/0.5 ML VIAL.NEB IH SCH (01:30)
--- NOTE | 2017-01-05 02:34 | NUR ---
RT TX HELD PER RN PT WANTS TO REST. NO SOB OR DISTRESS NOTED AT THIS TIME.
[2017-01-05 04:00] VITALS: BP 110/56
--- NOTE | 2017-01-05 06:30 | NUR ---
MS RN CLOSING NOTE PT REMAINED IN STABLE CONDITION DURING SHIFT. NO ACUTE DISTRESS NOTED. IV SITE CLEAN, DRY AND INTACT. MERAZ CATHETER PATENT AND DRAINING CLEAR/YELLOW URINE. NO C/O PAIN OR DISCOMFORT. CALL LIGHT WITHIN EASY REACH AT ALL TIMES. WILL ENDORSE TO NEXT SHIFT FOR KARL.
[2017-01-05] MEDS: PANTOPRAZOLE 40 MG TABLET.DR PO SCH (06:37)
[2017-01-05] MEDS: BLOOD SUGAR DIAGNOSTIC 1 EACH STRIP IN SCH ×4 (07:48→21:10)
[2017-01-05 08:00] VITALS: BP 122/57
--- NOTE | 2017-01-05 08:00 | NUR ---
MS1/RN AM SHIFT INITIAL NOTES RECEIVED PT AWAKE SITTING IN BED. PT A/O X 4, DENIES PAIN, NO SOB OR ACUTE RESPIRATORY DISTRESS NOTED. ON 2L O2 VIA N/C SATURATING @ 98%, LUNG SOUNDS CLEAR. IV SITE FLUSHED, PATENT WITH NO S/S OF INFECTION, SL. MERAZ CATHETER NOTED WITH CLEAR YELLOW URINE OUTPUT. BS CHECKED, RESULT 176, PT TO BE GIVEN 4 UNITS OF NOVOLOG AND 40 UNITS OF LEVEMIR SCHEDULED, NO S/S OF HYPER OR HYPOGLYCEMIA. PT IS COMFORTABLE AT THIS TIME. SCHEDULED AM MEDS TO BE GIVEN. CL WITHIN REACHED AND SAFETY MAINTAINED. ON GOING MONITORING.
[2017-01-05] MEDS: BACLOFEN (10 MG) 10 MG TABLET PO SCH ×3 (08:18→16:50)
[2017-01-05] MEDS: CHOLECALCIFEROL 1,000 UNIT TABLET (VIT D3) PO SCH (08:19)
[2017-01-05] MEDS: LOSARTAN POTASSIUM 25 MG TABLET PO SCH ×2 (08:19→16:50)
[2017-01-05] MEDS: DOCUSATE SODIUM 100 MG CAPSULE PO SCH ×3 (08:19→16:50)
[2017-01-05] MEDS: CITALOPRAM HYDROBROMIDE 20 MG TABLET PO SCH (08:19)
[2017-01-05] MEDS: ASPIRIN 81 MG TAB.CHEW PO SCH (08:19)
[2017-01-05] MEDS: AMLODIPINE BESYLATE 10 MG TABLET PO SCH (08:20)
[2017-01-05] MEDS: methylPREDNISolone SOD SUCC 125 MG/2ML VIAL IV SCH ×2 (08:21→16:50)
[2017-01-05] MEDS: INSULIN DETEMIR 100 UNIT/ML CARTRIDGE SQ SCH ×2 (08:26→21:15)
[2017-01-05] MEDS: INSULIN ASPART NOVOLOG 100 UNIT/ML CARTRIDGE SQ PRN (08:27)
[2017-01-05] MEDS: ENOXAPARIN SODIUM 40 MG/0.4 ML DISP.SYRIN SQ SCH (08:33)
[2017-01-05] MEDS ORDERED: PANTOPRAZOLE 40 MG TABLET.DR PO SCH (09:00)
[2017-01-05] MEDS ORDERED: ASPIRIN 81 MG TAB.CHEW PO SCH (09:00)
[2017-01-05] MEDS: IPRATROPIUM NEB FS 0.5 MG/2.5 ML AMPUL.NEB IH SCH ×3 (09:04→19:43)
[2017-01-05] MEDS: *INSULIN ASPART NOVOLOG 100 UNIT/ML CARTRIDGE SQ PRN ×3 (12:10→21:14)
--- NOTE | 2017-01-05 12:12 | NUR ---
MS1/RN ROUNDS - DR. ALVARADO PT SEEN & EXAMINED BY DR. ALVARADO. NO NEW ORDERS RECEIVED AT THIS TIME. MONITORING CONTINUED.
[2017-01-05] MEDS: ALBUTEROL FS 2.5 MG/3 ML VIAL.NEB IH SCH ×2 (13:45→19:44)
[2017-01-05 16:00] VITALS: BP 130/57
--- NOTE | 2017-01-05 16:00 | NUR ---
MS1/RN AFTERNOON ROUNDS NO CHANGE OF CONDITION. PT IS COMFORTABLE. MONITORING CONTINUED.
--- NOTE | 2017-01-05 19:11 | NUR ---
MS1/RN AM SHIFT END NOTES NO CHANGE OF CONDITION NOTED DURING THE SHIFT. NEEDS MET. MERAZ CATHETER INTACT AND IV SITE PATENT WITH NO S/S OF INFECTION. PT ENDORSED TO PM NURSE TO CONTINUE CARE. CL WITHIN REACHED AND SAFETY MAINTAINED.
--- NOTE | 2017-01-05 19:20 | NUR ---
RN INITIAL NOTE RECEIVED PT IN NO ACUTE DISTRESS IN BED. PT IS A/O X 3 AND ABLE TO MAKE NEEDS KNOWN. PT IS ON O2 VIA NC @ 2LPM AND TOLERATING WELL WITH O2 SAT @ 98%. PT DENIES ANY SOB, DIFFICULTY BREATHING OR PAIN AT THIS TIME. PT HAS F/C THAT IS CLEAN DRY INTACT AND PATENT WITH YELLOW URINE DRAINING. PT HAS LFA 20G THAT IS CLEAN DRY INTACT AND PATENT WITH SALINE FLUSH. BED IN LOW LOCK POSITION WITH RAILS UP X 2. CALL LIGHT WITHIN REACH AND ALL SAFETY MEASURES ENSURED AND CARRIED OUT. WILL CONTINUE TO MONITOR PT.
[2017-01-05 20:00] VITALS: BP 121/59
[2017-01-05] MEDS: CEFTRIAXONE 1 G in IV D5W 50 ML IV SCH (21:10)
[2017-01-05] MEDS: SENNOSIDES 8.6 MG TABLET PO SCH (21:11)
[2017-01-05] MEDS: ATORVASTATIN 40 MG TABLET PO SCH (21:11)
[2017-01-06] MEDS: IPRATROPIUM NEB FS 0.5 MG/2.5 ML AMPUL.NEB IH SCH ×4 (01:30→20:16)
[2017-01-06] MEDS: ALBUTEROL FS 2.5 MG/3 ML VIAL.NEB IH SCH ×4 (01:30→20:16)
[2017-01-06 04:00] VITALS: BP 123/54
[2017-01-06] MEDS: BLOOD SUGAR DIAGNOSTIC 1 EACH STRIP IN SCH ×4 (07:06→21:00)
[2017-01-06] MEDS: INSULIN ASPART NOVOLOG 100 UNIT/ML CARTRIDGE SQ PRN ×3 (07:16→18:22)
--- NOTE | 2017-01-06 08:04 | NUR ---
RN CLOSING NOTE PT REMAINS IN NO ACUTE DISTRESS IN BED. PT DID NOT HAVE ANY SIGNIFICANT CHANGE IN CONDITION DURING SHIFT. WILL ENDORSE TO AM RN FOR CONTINUITY OF CARE.
[2017-01-06 08:15] VITALS: BP 96/65
[2017-01-06] MEDS ORDERED: methylPREDNISolone SOD SUCC 125 MG/2ML VIAL IV SCH (09:00)
[2017-01-06] MEDS: LOSARTAN POTASSIUM 25 MG TABLET PO SCH ×2 (09:00→18:24)
[2017-01-06] MEDS: AMLODIPINE BESYLATE 10 MG TABLET PO SCH (09:00)
[2017-01-06] MEDS: CHOLECALCIFEROL 1,000 UNIT TABLET (VIT D3) PO SCH (09:00)
[2017-01-06] MEDS: CITALOPRAM HYDROBROMIDE 20 MG TABLET PO SCH (09:00)
[2017-01-06] MEDS: PANTOPRAZOLE 40 MG TABLET.DR PO SCH (10:16)
[2017-01-06] MEDS: BACLOFEN (10 MG) 10 MG TABLET PO SCH ×3 (10:16→18:25)
[2017-01-06] MEDS: DOCUSATE SODIUM 100 MG CAPSULE PO SCH ×3 (10:16→18:24)
[2017-01-06] MEDS: ENOXAPARIN SODIUM 40 MG/0.4 ML DISP.SYRIN SQ SCH (10:20)
[2017-01-06] MEDS: INSULIN DETEMIR 100 UNIT/ML CARTRIDGE SQ SCH ×2 (10:20→20:56)
[2017-01-06] MEDS: ASPIRIN 81 MG TAB.CHEW PO SCH (10:25)
--- NOTE | 2017-01-06 11:21 | NUR ---
vitamine d missing dose
[2017-01-06 16:00] VITALS: BP 131/53
[2017-01-06] MEDS: predniSONE 20 MG TABLET PO SCH (18:25)
--- NOTE | 2017-01-06 19:30 | NUR ---
MS RN INITIAL NOTE RECEIVED PT AWAKE AND RESTING IN BED. A/O X4 AND ABLE TO MAKE NEEDS KNOWN. ON 2L OF O2 AND SATING WELL. MERAZ CATHETER WAS D/C'D AND THERE IS NO C/O PAIN OR DISCOMFORT AT THIS TIME. IV SITE CLEAN, DRY, INTACT, PATENT AND FLUSHING WELL. ALL SAFETY MEASURES IN PLACE. CALL LIGHT WITHIN REACH. WILL CONTINUE TO MONITOR.
[2017-01-06 20:00] VITALS: BP 123/60
[2017-01-06] MEDS: CEFTRIAXONE 1 G in IV D5W 50 ML IV SCH (20:52)
[2017-01-06] MEDS: ATORVASTATIN 40 MG TABLET PO SCH (21:00)
[2017-01-06] MEDS: SENNOSIDES 8.6 MG TABLET PO SCH (21:00)
[2017-01-06] MEDS: *INSULIN ASPART NOVOLOG 100 UNIT/ML CARTRIDGE SQ PRN (21:03)
[2017-01-07] MEDS: IPRATROPIUM NEB FS 0.5 MG/2.5 ML AMPUL.NEB IH SCH ×5 (01:51→20:40)
[2017-01-07] MEDS: ALBUTEROL FS 2.5 MG/3 ML VIAL.NEB IH SCH ×5 (01:51→20:40)
[2017-01-07 04:00] VITALS: BP 150/74
--- NOTE | 2017-01-07 06:30 | NUR ---
MS RN CLOSING NOTE PT REMAINED STABLE DURING SHIFT. ALL NEEDS ATTENDED TO PROMPTLY. ALL SAFETY MEASURES IN PLACE. IV SITE INTACT. ON 2L OF O2 AND SATING WELL. CALL LIGHT WITHIN EASY REACH AT ALL TIMES. WILL ENDORSE TO NEXT SHIFT FOR KARL.
[2017-01-07] MEDS: PANTOPRAZOLE 40 MG TABLET.DR PO SCH ×2 (06:36→10:16)
[2017-01-07] MEDS: BLOOD SUGAR DIAGNOSTIC 1 EACH STRIP IN SCH ×4 (06:39→22:13)
[2017-01-07] MEDS: INSULIN ASPART NOVOLOG 100 UNIT/ML CARTRIDGE SQ PRN ×3 (06:41→17:37)
[2017-01-07 08:00] VITALS: BP 165/81
[2017-01-07] MEDS: ENOXAPARIN SODIUM 40 MG/0.4 ML DISP.SYRIN SQ SCH (09:00)
[2017-01-07] MEDS: CITALOPRAM HYDROBROMIDE 20 MG TABLET PO SCH (09:00)
[2017-01-07] MEDS: INSULIN DETEMIR 100 UNIT/ML CARTRIDGE SQ SCH ×2 (09:00→20:57)
[2017-01-07] MEDS: ASPIRIN 81 MG TAB.CHEW PO SCH (10:14)
[2017-01-07] MEDS: BACLOFEN (10 MG) 10 MG TABLET PO SCH ×3 (10:15→17:31)
[2017-01-07] MEDS: DOCUSATE SODIUM 100 MG CAPSULE PO SCH ×3 (10:15→17:31)
[2017-01-07] MEDS: CHOLECALCIFEROL 1,000 UNIT TABLET (VIT D3) PO SCH (10:15)
[2017-01-07] MEDS: predniSONE 20 MG TABLET PO SCH (10:15)
[2017-01-07] MEDS: LOSARTAN POTASSIUM 25 MG TABLET PO SCH ×2 (10:16→17:38)
--- NOTE | 2017-01-07 13:56 | NUR ---
pt blood sugar 423 at noon. notified, and lab draw ordered
[2017-01-07 16:00] VITALS: BP 138/65
--- NOTE | 2017-01-07 16:00 | NUR ---
Lab draw of blood glucose 466, Dr aware and said no new orders
[2017-01-07 16:29] VITALS: BP 138/65
--- NOTE | 2017-01-07 18:15 | NUR ---
called [facility] to give report, nurse stated she will call back because they were unaware pt was coming. charge nurse notified
--- NOTE | 2017-01-07 19:00 | NUR ---
called [facility] to check on pt status, nurse stated " still trying to call admissions, she will call back".
--- NOTE | 2017-01-07 19:15 | NUR ---
RN INITIAL NOTES RECEIVED PATIENT IN BED, AWAKE AND ALERT. PATIENT ON 2LPM OF O2 VIA NC, RESPIRATION IS EVEN AND UNLABORED WITH NO DISTRESS NOTED. PATIENT DENIES ANY PAIN AND DISCOMFORT. PATIENT NOT IN ANY FORM OF DISTRESS. PATIENT IS FOR DISCHARGE BACK TO SNF TONIGHT. AWAITING FOR DISPATCH AND AWAITING CALL BACK FROM [facility]. WILL F/UP ON IT ACCORDINGLY. PATIENT'S NEEDS ANTICIPATED AND MET. SAFETY AND COMFORT ENSURED. BED IN LOW AND LOCKED POSITION. CALL LIGHT IN REACH. WILL MONITOR.
--- NOTE | 2017-01-07 19:23 | NUR ---
transportation here to bean picker machine operator patient, talked to dispatcher about situation about facility not ready for patient. Dispatcher Rosy stated she will put pt on will call until the facility is ready then will send back transportation to get the patient.
[2017-01-07 20:00] VITALS: BP 117/59
[2017-01-07] MEDS: SENNOSIDES 8.6 MG TABLET PO SCH (21:00)
[2017-01-07] MEDS: ATORVASTATIN 40 MG TABLET PO SCH (21:00)
[2017-01-07] MEDS: CEFTRIAXONE 1 G in IV D5W 50 ML IV SCH (21:00)
[2017-01-07] MEDS: *INSULIN ASPART NOVOLOG 100 UNIT/ML CARTRIDGE SQ PRN (22:17)
--- NOTE | 2017-01-07 22:41 | NUR ---
RN NOTES DISPATCH ON UNIT TO CORE LAYING MACHINE OPERATOR THE PATIENT. REPORT GIVEN AND D/C PAPERS ENDORSED ACCORDINGLY TO EMT. ALL HS MEDS GIVEN ORDERED. SKIN REASSESSMENT DONE, PICTURES TAKEN AND FILED IN CHART. PATIENT KEPT CLEAN AND COMFORTABLE. REPORT GIVEN TO SU FROM [facility]. PATIENT LEFT UNIT IN A STABLE CONDITION AT THIS TIME. ON 2LPM OF O2 VIA NC. RESPIRATION IS EVEN AND UNLABORED WITH NO DISTRESS. Addendum: 01/07/17 at 2247 by AMADEO BARROSO RN PIV ACCESS ON L FOREARM REMOVED. PRESSURE DRESSING APPLIED.
[2017-01-08] MEDS ORDERED: predniSONE 20 MG TABLET PO SCH (09:00)
== END 2017-01-07 22:45 | DRG 140 ==
LOC: ER 14:42 → TELE1 16:31 → MEDSG1 01-04 10:17
PROVIDERS: ADMIT Internal Medicine; ATTEND Internal Medicine
DX: J44.0 Chronic obstructive pulmonary disease with (acute) lower respiratory infection (principal); G82.20 Paraplegia, unspecified; E11.22 Type 2 diabetes mellitus with diabetic chronic kidney disease; J12.9 Viral pneumonia, unspecified; B96.20 Unspecified Escherichia coli [E. coli] as the cause of diseases classified elsewhere; J44.1 Chronic obstructive pulmonary disease with (acute) exacerbation; I12.9 Hypertensive chronic kidney disease with stage 1 through stage 4 chronic kidney disease, or unspecified chronic kidney disease; N18.2 Chronic kidney disease, stage 2 (mild); I25.10 Atherosclerotic heart disease of native coronary artery without angina pectoris; J20.9 Acute bronchitis, unspecified; E55.9 Vitamin D deficiency, unspecified; T38.0X5A Adverse effect of glucocorticoids and synthetic analogues, initial encounter; Y92.239 Unspecified place in hospital as the place of occurrence of the external cause; E11.65 Type 2 diabetes mellitus with hyperglycemia; T46.4X5A Adverse effect of angiotensin-converting-enzyme inhibitors, initial encounter; Y92.89 Other specified places as the place of occurrence of the external cause; Z87.891 Personal history of nicotine dependence; N39.0 Urinary tract infection, site not specified
CPT/HCPCS: 36415; 70220-TC; 71020-TC; 80048-TC; 80053-TC; 81000-TC; 82248-TC; 82947-TC; 82962-TC; 83605-TC; 84484-TC; 85025-TC; 85730-TC; 87040-TC; 87081-TC; 87086-TC; 87186-TC; 94799-TC; A4606; J0696; J1650; J1815; J2930; J7060; Z7610

== ENCOUNTER 2019-06-26 21:36 | Inpatient (IN) | payer MEDICAID, OTHER ==
[~2019-06-26] VITALS: Ht 172.7 cm; Wt 98.9 kg
[~2019-06-26 21:36] MED LIST changes: -ACET-868 PO; +ALBU2.5V13 IH; -ASCO500C16 PO; +ASPI-1169 PO; -ASPI81TA2 PO; -BISA10SU61 RC; -CHOL100030 PO; +CHOL100044 PO; -DOCU-25 PO; +ENOX40DI SQ; -INSU100V11 SQ; +IPRA0.2S9 IH; -MAGN400O6 PO; -MULT-70 PO; -NA P133E RC; -SENN8.6T6 PO; -VITA1TAB34 PO
[2019-06-26 21:59] LABS: BASOPHILS # (AUTO) 0.2 /CMM (0.0-0.2); BASOPHILS % (AUTO) 1.2 % (0.0-2.0); EOSINOPHILS % (AUTO) 3.2 % (0.0-6.0); HEMATOCRIT 33 % (39-51); HEMOGLOBIN 10.9 g/dL (13.5-17.5); LYMPHOCYTES % (AUTO) 15.8 % (20.0-44.0); MEAN CORPUSCULAR HGB CONC 33 g/dl (31.0-36.0); MEAN CORPUSCULAR VOLUME 87 fL (80-96); MONOCYTES # (AUTO) 0.7 /CMM (0.1-1.30); MONOCYTES % (AUTO) 5.5 % (2.0-12.0); NEUTROPHILS # (AUTO) 9.5 /CMM (1.8-8.9); NEUTROPHILS % (AUTO) 74.3 % (43.0-81.0); PLATELET COUNT (AUTO) 196 /CMM (150-450); RED BLOOD CELL COUNT(AUTO) 3.83 MIL/uL (4.5-6.0); WHITE BLOOD COUNT (AUTO) 12.8 K/uL (4.3-11.0)
[2019-06-26] MEDS ORDERED: IV NS 0.9% 1,000 ML BAG IV ONE (22:00)
[2019-06-26 22:09] LABS: CALCIUM, SERUM 8.9 mg/dL (8.5-10.1); CARBON DIOXIDE 26 mmol/L (21-32); CHLORIDE 101 mmol/L (98-107); CREATININE 2.2 mg/dL (0.6-1.3); GLUCOSE 173 mg/dL (74-106); POTASSIUM 4.1 mmol/L (3.5-5.1); SODIUM SERUM 138 mmol/L (136-145); UREA NITROGEN, BLOOD 52 mg/dL (7-18)
[2019-06-26 22:21] LABS: ALANINE AMINOTRANSFERASE 19 U/L (12-78); ALBUMIN 3.4 g/dL (3.4-5.0); ALKALINE PHOSPHATASE 103 U/L (46-116); ASPARTATE AMINOTRANSFERASE 11 U/L (15-37); B-TYPE NATRIURETIC PEPTIDE 182 PG/ML (0-125); BILIRUBIN,DIRECT 0.1 mg/dL (0.0-0.2); BILIRUBIN,TOTAL 0.4 mg/dL (0.2-1.0); TOTAL PROTEIN, SERUM 7.7 g/dL (6.4-8.2)
[2019-06-26 22:24] LABS: APPEARANCE,URINE Cloudy (CLEAR); BILIRUBIN,URINE Negative (NEGATIVE); BLOOD, URINE Small Ery/uL (NEGATIVE); KETONES,URINE Negative (NEGATIVE); LEUKOCYTE ESTERASE ,URINE Large (NEGATIVE); NITRITE, URINE Negative (NEGATIVE); PH,URINE 5.5 (5.0-8.0); PROTEIN,URINE Negative (NEGATIVE); UGLUCOSE Negative (NEGATIVE); UROBILINOGEN,URINE 0.2 EU/dL (0.2)
--- NOTE | 2019-06-26 22:24 | NUR ---
PT RAMESH CT ON [facility]
--- NOTE | 2019-06-26 22:28 | NUR ---
LYNNETTE FROM [facility]. TO ER BED 10. AAOX1-2. NO RESP DISTRESS NOTED. PER EMS REPORT PT HAS BEEN ALTERED MENTAL STATIS FOR 2 DAYS FROM SNF. PT IS PRESENTED LETHARGIC BUT ARROUSABLE BUT GOES BACK TO SLEEP.MD WAS AT BEDSIDE FOR EVAL. RECTAL TEMP 98.6. MERAZ CATH INSERTED AND URIEN COLLECTED, SENT TO LAB. IV LINE PRESENT UPON ARRIVAL ON LAC [address] START[address] BY EMS[address] PT PLACE ON MONITOR. EKG DONE. BLOOD DRAWN AND SENT TO LAB.
--- NOTE | 2019-06-26 22:43 | NUR ---
CALLED [facility] TO HAVE IMAGES READ
[2019-06-26 22:48] LABS: COLOR,URINE YELLOW (YELLOW)
[2019-06-26 22:51] LABS: BACTERIA,URINE Many /HPF (None Seen); SQUAMOUS EPITHELIAL CELL,UR Few /HPF (None Seen); WBC,URINE TOO NUMEROUS TO COUN /HPF (0-3)
[2019-06-26] MEDS ORDERED: CEFTRIAXONE 1 G in IV D5W 50 ML IV ONE (23:00)
[2019-06-26] MEDS ORDERED: CEFTRIAXONE 1GM BAG (ER ONLY) 50 ML IV ONE (23:06)
--- NOTE | 2019-06-26 23:19 | NUR ---
CALLED HOUSE SUP FOR MS BED
[2019-06-26] MEDS ORDERED: CLONIDINE HCL 0.1 MG TABLET PO PRN (23:30)
[2019-06-26] MEDS ORDERED: IPRATROPIUM NEB FS 0.5 MG/2.5 ML AMPUL.NEB IH PRN (23:30)
[2019-06-26] MEDS ORDERED: SIMETHICONE 80 MG TAB.CHEW PO PRN (23:30)
[2019-06-26] MEDS ORDERED: ALBUTEROL FS 2.5 MG/0.5 ML VIAL.NEB IH PRN (23:30)
--- NOTE | 2019-06-26 23:46 | NUR ---
REPORT GIVEN TO HERON ESTEVES FOR KARL
--- NOTE | 2019-06-26 23:47 | NUR ---
NO NEUROLOGIC DEFECIT NOTED. PT IS PARALYZED T3 DOWN.
[2019-06-27] VITALS: BP 112/55
--- NOTE | 2019-06-27 | NUR ---
MS SUPERVISOR HOSPITALITY HOUSE NOTES Patient came to unit via gurney, alert, oriented x 1. Breathing even and unlabored. Not in any distress, on room air. IV site on LAC g#20 intact and patent. No complaints at this time. Godinez catheter in place, draining well. Skin assessment done. Pictures attached to chart. Oriented to call light- placed within easy reach. Bed in low, locked position, side rails up x 2. Will continue to monitor accordingly
--- NOTE | 2019-06-27 00:07 | NUR ---
PT TRANSPORTED TO UNIT WITH EMT AND RN AT BEDSIDE. PT IS STABLE FOR TRANSPORT. NAD NOTED DURING TRANSPORT
[2019-06-27] MEDS ORDERED: ONDANSETRON HCL/PF 4 MG/2 ML VIAL IVP PRN (01:30)
[2019-06-27] MEDS ORDERED: Z GUARD REMEDY 2 OZ OINT TP PRN (01:30)
[2019-06-27] MEDS ORDERED: HYDROCODONE/APAP 5/325MG 1 EACH TABLET PO PRN (01:30)
[2019-06-27] MEDS ORDERED: MAGNESIUM HYDROXIDE 30 ML UDC PO PRN (01:30)
[2019-06-27] MEDS ORDERED: MAG HYDROX/AL HYDROX/SIMETH 30 ML UDC PO PRN (01:30)
[2019-06-27] MEDS ORDERED: ACETAMINOPHEN 325 MG TABLET PO PRN (01:30)
[2019-06-27] MEDS ORDERED: DEXTROSE 50%-WATER 50 ML DISP.SYRIN IV PRN (02:00)
[2019-06-27] MEDS: IV NS 0.9% 1,000 ML IV PRN ×2 (02:08→20:12)
[2019-06-27] MEDS: INSULIN REGULAR, HUMAN 100 UNIT/ML 3 ML VIAL SQ PRN ×3 (06:43→17:06)
[2019-06-27] MEDS ORDERED: GABA600T12 PO (06:57)
[2019-06-27] MEDS ORDERED: TAMS-12 PO (06:57)
[2019-06-27] MEDS ORDERED: HYDR12.55 PO (06:57)
[2019-06-27] MEDS: BLOOD SUGAR DIAGNOSTIC 1 EACH STRIP VI SCH ×4 (07:25→21:09)
--- NOTE | 2019-06-27 07:25 | NUR ---
MS RN CLOSING NOTES PATIENT SLEEPING IN BED, EASILY AROUSABLE. BREATHING EVEN AND UNLABORED. NOT IN ANY DISTRESS. PERIPHERAL IV INFUSING AT 75ML/HR. BSL 171MG/DL. 3 UNITS OF INSULIN GIVEN PER SLIDING SCALE. MERAZ CATHETER IN PLACE, DRAINING RED URINE. SOME HOME MEDICATIONS NOT FOUND IN THE LIST, UPDATED HOME MEDS- AM RN TO FOLLOW UP. NO ACUTE CHANGES OVERNIGHT. SAFETY MEASURES IN PLACE, CALL LIGHT WITHIN REACH, BED IN LOW, LOCKED POSITION. ENDORSED KARL TO AM RN
--- NOTE | 2019-06-27 07:30 | NUR ---
RN OPENING NOTES RECEIVED REPORT FROM RIBBON LAP MACHINE TENDER RN. PT IS ASLEEP IN BED WITH EQUAL CHEST RISE AND FALL. NO SIGNS OF PAIN OR SOB NOTED AT THIS TIME. PT MERAZ DRAINING ANGI COLOR URINE. PT IS IN SEMI FINNEGAN POSITION IN BED WITH BED LOCKED AND IN LOWEST POSITION WITH CALL LIGHT IN REACH. WILL CONTINUE TO MONITOR.
[2019-06-27 08:00] VITALS: BP 109/62
[2019-06-27] MEDS: ASPIRIN 81 MG TAB.CHEW PO SCH (08:26)
[2019-06-27] MEDS: BACLOFEN (10 MG) 10 MG TABLET PO SCH ×3 (08:26→17:03)
[2019-06-27] MEDS: CHOLECALCIFEROL 1,000 UNIT TABLET (VIT D3) PO SCH (08:26)
[2019-06-27] MEDS: PANTOPRAZOLE 40 MG TABLET.DR PO SCH (08:26)
[2019-06-27] MEDS: CITALOPRAM HYDROBROMIDE 20 MG TABLET PO SCH (08:26)
[2019-06-27] MEDS: ENOXAPARIN SODIUM 40 MG/0.4 ML DISP.SYRIN SQ SCH ×2 (08:27→08:30)
[2019-06-27] MEDS: AMLODIPINE BESYLATE 10 MG TABLET PO SCH (08:28)
--- NOTE | 2019-06-27 09:00 | NUR ---
HELD LOVENOX INJECTION DUE TO ACTIVE BLEEDING FROM URINARY TRACT.
--- NOTE | 2019-06-27 11:14 | NUR ---
REMOVED OLD MERAZ INSERTED NEW 20 KINYARWANDA MERAZ. PT TOLERATED INSERTION WELL DENIES ANY PAIN OR DISCOMFORT. WILL CONTINUE TO MONITOR URINE OUTPUT. LARGER CLOTS DRAINING INTO MERAZ CATHETER. Addendum: 06/27/19 at 1116 by BUZZ PETTY RN JACKI DONALD ASSISTED IN THE INSERTION.
[2019-06-27 11:27] LABS: BASOPHILS # (AUTO) 0.1 /CMM (0.0-0.2); BASOPHILS % (AUTO) 0.6 % (0.0-2.0); EOSINOPHILS % (AUTO) 2.2 % (0.0-6.0); HEMATOCRIT 36 % (39-51); HEMOGLOBIN 11.6 g/dL (13.5-17.5); LYMPHOCYTES # (AUTO) 1.7 /CMM (0.8-4.8); LYMPHOCYTES % (AUTO) 14.4 % (20.0-44.0); MEAN CORPUSCULAR HGB CONC 33 g/dl (31.0-36.0); MEAN CORPUSCULAR VOLUME 86 fL (80-96); MONOCYTES # (AUTO) 0.6 /CMM (0.1-1.30); MONOCYTES % (AUTO) 4.9 % (2.0-12.0); NEUTROPHILS # (AUTO) 9.1 /CMM (1.8-8.9); NEUTROPHILS % (AUTO) 77.9 % (43.0-81.0); PLATELET COUNT (AUTO) 197 /CMM (150-450); RED BLOOD CELL COUNT(AUTO) 4.13 MIL/uL (4.5-6.0); WHITE BLOOD COUNT (AUTO) 11.7 K/uL (4.3-11.0)
[2019-06-27 11:50] LABS: CALCIUM, SERUM 8.7 mg/dL (8.5-10.1); CREATININE 1.7 mg/dL (0.6-1.3); POTASSIUM 3.9 mmol/L (3.5-5.1)
[2019-06-27 16:00] VITALS: BP 116/56
[2019-06-27] MEDS: CEFTRIAXONE 1 G in IV D5W 50 ML IV SCH (17:02)
--- NOTE | 2019-06-27 19:00 | NUR ---
MS RN OPENING NOTES RECEIVED PATIENT IN BED, ALERT, ORIENTED X3. BREATHING EVEN AND UNLABORED WITH EQUAL CHEST RISE AND FALL. NO SIGNS OF PAIN OR SOB NOTED AT THIS TIME. MERAZ CATHETER IN PLACE DRAINING WELL TO GRAVITY. PERIPHERAL IV INFUSING AT 75ML/HR. SAFETY MEASURES IN PLACE; CALL LIGHT WITHIN REACH. WILL CONTINUE TO MONITOR ACCORDINGLY.
--- NOTE | 2019-06-27 19:01 | NUR ---
RN CLOSING NOTES PT IS IN BED DENIES ANY SOB OR PAIN AT PRESENT TIME. IV IN RAC RUNNING 75 MLS/HR NS. PT IS A&OX3. BED IS LOCKED AND IN LOWEST POSITION WITH CALL LIGHT IN HAND. WILL ENDORSE CONTINATION OF CARE TO PLANNING MANAGEMENT IT SPECIALIST RN.
[2019-06-27 20:00] VITALS: BP 114/63
[2019-06-27 20:47] VITALS: BP 114/63
[2019-06-27] MEDS: *INSULIN REGULAR(HUMULIN R)HUM 100 UNIT/ML VIAL SQ PRN (21:17)
--- NOTE | 2019-06-27 21:18 | NUR ---
RN NOTES BSL checked- 199mg/dL. 3 units insulin given per sliding scale. Snacks provided
--- NOTE | 2019-06-27 21:36 | NUR ---
RN NOTES Patient is alert, oriented x 3 now. Asked regarding PNA vaccine. Patient stated he had it last year. PNA vaccine updated
[2019-06-28 06:16] LABS: BASOPHILS # (AUTO) 0.1 /CMM (0.0-0.2); BASOPHILS % (AUTO) 0.8 % (0.0-2.0); EOSINOPHILS % (AUTO) 3.6 % (0.0-6.0); HEMATOCRIT 38 % (39-51); HEMOGLOBIN 12.5 g/dL (13.5-17.5); LYMPHOCYTES # (AUTO) 2.6 /CMM (0.8-4.8); LYMPHOCYTES % (AUTO) 19.4 % (20.0-44.0); MEAN CORPUSCULAR HGB CONC 33 g/dl (31.0-36.0); MEAN CORPUSCULAR VOLUME 86 fL (80-96); MONOCYTES # (AUTO) 0.7 /CMM (0.1-1.30); MONOCYTES % (AUTO) 5.4 % (2.0-12.0); NEUTROPHILS # (AUTO) 9.4 /CMM (1.8-8.9); NEUTROPHILS % (AUTO) 70.8 % (43.0-81.0); PLATELET COUNT (AUTO) 220 /CMM (150-450); RED BLOOD CELL COUNT(AUTO) 4.41 MIL/uL (4.5-6.0); WHITE BLOOD COUNT (AUTO) 13.3 K/uL (4.3-11.0)
[2019-06-28 06:25] LABS: CALCIUM, SERUM 8.9 mg/dL (8.5-10.1); CREATININE 1.3 mg/dL (0.6-1.3); MAGNESIUM 1.7 mg/dL (1.8-2.4); PHOSPHORUS 3.2 mg/dL (2.5-4.9)
[2019-06-28] MEDS: INSULIN REGULAR, HUMAN 100 UNIT/ML 3 ML VIAL SQ PRN ×3 (06:37→17:44)
[2019-06-28] MEDS: BLOOD SUGAR DIAGNOSTIC 1 EACH STRIP VI SCH ×4 (06:41→22:23)
--- NOTE | 2019-06-28 06:58 | NUR ---
MS RN CLOSING NOTES PATIENT SLEEPING IN BED, EASILY AROUSABLE. BREATHING EVEN AND UNLABORED. NOT IN ANY DISTRESS. PERIPHERAL IV INFUSING AT 75ML/HR. BSL 192MG/DL. 3 UNITS OF INSULIN GIVEN PER SLIDING SCALE. MERAZ CATHETER IN PLACE, HEMATURIA NOTED. NO ACUTE CHANGES OVERNIGHT. SAFETY MEASURES IN PLACE, CALL LIGHT WITHIN REACH, BED IN LOW, LOCKED POSITION. WILL ENDORSE KARL TO AM RN
--- NOTE | 2019-06-28 07:30 | NUR ---
RN MS NOTES PT IN BED, AWAKE, ALERT AND ORIENTED, VERBALLY RESPONSIVE, NO COMPLAINT OF PAIN, NOT IN DISTRESS, IV FLUIDS INFUSING WELL, CALL LIGHT WITHIN REACH, KEPT WARM AND COMFORTABLE.
[2019-06-28 08:00] VITALS: BP 136/64
[2019-06-28] MEDS: AMLODIPINE BESYLATE 10 MG TABLET PO SCH (08:13)
[2019-06-28] MEDS: PANTOPRAZOLE 40 MG TABLET.DR PO SCH (08:13)
[2019-06-28] MEDS: BACLOFEN (10 MG) 10 MG TABLET PO SCH ×3 (08:13→16:34)
[2019-06-28] MEDS: CHOLECALCIFEROL 1,000 UNIT TABLET (VIT D3) PO SCH (08:13)
[2019-06-28] MEDS: CITALOPRAM HYDROBROMIDE 20 MG TABLET PO SCH (08:13)
[2019-06-28] MEDS: ASPIRIN 81 MG TAB.CHEW PO SCH (08:13)
[2019-06-28] MEDS: ENOXAPARIN SODIUM 40 MG/0.4 ML DISP.SYRIN SQ SCH (08:15)
--- NOTE | 2019-06-28 09:00 | NUR ---
RN MS NOTES LOVENOX NON ADMIN, PT WITH HEMATURIA.
[2019-06-28] MEDS: Magnesium 1GM/D5W 100ML PREMIX 100 ML IV SCH ×2 (09:39→10:41)
--- NOTE | 2019-06-28 13:00 | NUR ---
RN MS NOTES PT IN BED, ASLEEP, EASY TO AROUSE, ALERT AND ORIENTED, TOLERATING CURRENT DIET, IV FLUIDS INFUSING WELL, STILL NOTED WITH HEMATURIA, MD AWARE, NO COMPLAINT OF PAIN OR ANY DISCOMFORT, CALL LIGHT WITHIN REACH, NEEDS ATTENDED.
[2019-06-28] MEDS: IV NS 0.9% 1,000 ML IV PRN (13:56)
[2019-06-28 16:00] VITALS: BP 115/57
[2019-06-28] MEDS: CEFTRIAXONE 1 G in IV D5W 50 ML IV SCH (16:34)
--- NOTE | 2019-06-28 18:14 | NUR ---
RN MS NOTES PT IN BED, AWAKE, ALERT AND ORIENTED, WATCHING TV WHILE EATING DINNER, TOLERATING WELL, NO COMPLAINT OF PAIN OR ANY DISCOMFORT, IV FLUIDS INFUSING WELL, PM MEDS GIVEN ORDERED, F/C IN PLACE, STILL NOTED WITH HEMATURIA, MD AWARE, ALL NEEDS ATTENDED.
--- NOTE | 2019-06-28 19:30 | NUR ---
MS/RN NOTES RECEIVED PT. LYING IN BED. PT. IS AWAKE, ALERT AND ORIENTED X3. BREATHING EVEN AND UNLABORED ON ROOM AIR. NO SOB, RESPIRATORY DISTRESS OR COMPLAINTS OF PAIN NOTED AT THIS TIME. PT. WITH LEFT AC 20 GAUGE PERIPHERAL IV PRESENT, PATENT AND INTACT ADMINISTERING TO PT. NS @ 75 ML/HR. NO S/S OF HYPO/HYPERGLYCEMIA NOTED AT THIS TIME. PT. WITH MERAZ CATHETER PRESENT, PATENT AND INTACT. PT. NOTED TO HAVE HEMATURIA PER DAYSHIFT NURSE AWARE, CONTINUE TO MONITOR. BED LOCKED AND IN LOWEST POSITION, SIDE RAILS UP X3, BED ALARM ON, CALL LIGHT WITHIN REACH, WILL CONTINUE TO MONITOR.
[2019-06-28 20:00] VITALS: BP 137/58
[2019-06-28] MEDS: *INSULIN REGULAR(HUMULIN R)HUM 100 UNIT/ML VIAL SQ PRN (22:24)
[2019-06-29] MEDS: BLOOD SUGAR DIAGNOSTIC 1 EACH STRIP VI SCH ×4 (06:36→21:26)
[2019-06-29] MEDS: INSULIN REGULAR, HUMAN 100 UNIT/ML 3 ML VIAL SQ PRN ×4 (06:37→21:25)
--- NOTE | 2019-06-29 06:55 | NUR ---
MS/RN NOTES PT. IS LYING IN BED. PT. IS AWAKE, ALERT AND ORIENTED X3. BREATHING EVEN AND UNLABORED ON ROOM AIR. NO SOB, RESPIRATORY DISTRESS OR COMPLAINTS OF PAIN NOTED AT THIS TIME. PT. WITH LEFT AC 20 GAUGE PERIPHERAL IV PRESENT, PATENT AND INTACT ADMINISTERING TO PT. NS @ 75 ML/HR. NO S/S OF HYPO/HYPERGLYCEMIA NOTED AT THIS TIME AND THROUGHOUT SHIFT. PT. WITH MERAZ CATHETER PRESENT, PATENT AND INTACT WITH HEMATURIA NOTED. ALL PT. NEEDS MET. PT. OFFLOADED, TURNED AND REPOSITIONED Q2H AND NEEDED. BED LOCKED AND IN LOWEST POSITION, SIDE RAILS UP X3, BED ALARM ON, CALL LIGHT WITHIN REACH, WILL ENDORSE TO DAYSHIFT NURSE FOR CONTINUITY OF CARE.
--- NOTE | 2019-06-29 07:25 | NUR ---
MS RN INITIAL NOTES Received report at bedside. Received patient in bed, awake and comfortable. Blood draw being drawn. Awake, alert and oriented, verbally responsive. No signs and symptoms of distress. Safety measures in place. Will continue to monitor and assess patient
[2019-06-29] MEDS: PANTOPRAZOLE 40 MG TABLET.DR PO SCH (07:40)
[2019-06-29 07:46] LABS: BASOPHILS # (AUTO) 0.1 /CMM (0.0-0.2); BASOPHILS % (AUTO) 0.7 % (0.0-2.0); EOSINOPHILS % (AUTO) 4.3 % (0.0-6.0); HEMATOCRIT 39 % (39-51); HEMOGLOBIN 12.9 g/dL (13.5-17.5); LYMPHOCYTES # (AUTO) 2.2 /CMM (0.8-4.8); LYMPHOCYTES % (AUTO) 15.9 % (20.0-44.0); MEAN CORPUSCULAR HGB CONC 33 g/dl (31.0-36.0); MEAN CORPUSCULAR VOLUME 85 fL (80-96); MONOCYTES # (AUTO) 0.4 /CMM (0.1-1.30); MONOCYTES % (AUTO) 2.9 % (2.0-12.0); NEUTROPHILS # (AUTO) 10.6 /CMM (1.8-8.9); NEUTROPHILS % (AUTO) 76.2 % (43.0-81.0); PLATELET COUNT (AUTO) 252 /CMM (150-450); RED BLOOD CELL COUNT(AUTO) 4.55 MIL/uL (4.5-6.0); WHITE BLOOD COUNT (AUTO) 13.9 K/uL (4.3-11.0)
[2019-06-29 07:49] LABS: CREATININE 1.1 mg/dL (0.6-1.3); POTASSIUM 4.4 mmol/L (3.5-5.1)
[2019-06-29] MEDS: BACLOFEN (10 MG) 10 MG TABLET PO SCH ×3 (08:26→16:55)
[2019-06-29] MEDS: CITALOPRAM HYDROBROMIDE 20 MG TABLET PO SCH (08:28)
[2019-06-29] MEDS: AMLODIPINE BESYLATE 10 MG TABLET PO SCH (08:28)
[2019-06-29] MEDS: ASPIRIN 81 MG TAB.CHEW PO SCH (08:28)
[2019-06-29] MEDS: CHOLECALCIFEROL 1,000 UNIT TABLET (VIT D3) PO SCH (08:28)
[2019-06-29] MEDS: ENOXAPARIN SODIUM 40 MG/0.4 ML DISP.SYRIN SQ SCH (08:31)
--- NOTE | 2019-06-29 08:31 | NUR ---
MS RN NON-ADMIN NOTES. Held Lovenox d/t hematuria. Will continue to monitor and assess patient. Will notify
[2019-06-29] MEDS: IV NS 0.9% 1,000 ML IV PRN ×2 (10:18→21:32)
--- NOTE | 2019-06-29 11:15 | NUR ---
WOUND CARE CONSULT: PT PRESENTS WITH SCARRING TO SACRUM, BILATERAL BUTTOCKS, PRESENT ON ADMISSION. PT IS INCONTINENT OF STOOL. PT HAS PARAPLEGIA. RECOMMENDATIONS MADE FOR SKIN PROTECTION. DISCUSSED WITH NURSING STAFF. FIRST STEP LOW AIRLOSS MATTRESS TO BE PLACED. WILL SEE PRN. BOJORQUEZ IN AGREEMENT WITH PLAN OF CARE. Addendum: 06/29/19 at 1117 by VILMA DAWSON WNDNU Amended: Links added.
[2019-06-29] MEDS: MEROPENEM 1 G in IV NS 0.9% 100 ML IV SCH (16:40)
--- NOTE | 2019-06-29 18:43 | NUR ---
MS RN CLOSING NOTES Patient awake, alert and verbally responsive. Slovak language preferred. All due meds given and tolerated. No SOB noted. No signs and symptoms of distress. HOB elevated at all times. Kept patient clean, dry and comfortable. Turned and repositioned every two hours. Wound concult done with new orders including 1st step mattress. Safety measures in place. Bed in lowest position with bed alarm on and call light within reach. Will endorse to oncoming shift nurse
--- NOTE | 2019-06-29 19:20 | NUR ---
MS RN OPENING PM NOTE BEDSIDE REPORT RECIEVED FROM EMELINA SHELBY. Patient awake, alert and verbally responsive. PRIMARILY English SPEAKING BUT UNDERSTANDS ALBANIAN. REVIEWED POC QUESTIONS CONCERNS ADDRESSED. No SOB noted. No signs and symptoms of distress. HOB ION SEMI FOWLERS POSITION. Safety measures in place. Bed in lowest position with bed alarm on and call light within reach SR X2. IV RUNNING TO LEFT AC #20 WITH NO S/S OF INFILTATION WITH NS AT 75 INFUSING. WILL CONT TO MONITOR.
[2019-06-29 20:00] VITALS: BP 142/59
[2019-06-29] MEDS ORDERED: POLYVINYL ALCOHOL 15 ML BOTTLE EACHEYE PRN (23:30)
[2019-06-30] MEDS: MEROPENEM 1 G in IV NS 0.9% 100 ML IV SCH ×4 (00:01→23:53)
[2019-06-30] MEDS: INSULIN REGULAR, HUMAN 100 UNIT/ML 3 ML VIAL SQ PRN ×2 (06:42→12:30)
[2019-06-30] MEDS: PANTOPRAZOLE 40 MG TABLET.DR PO SCH (06:44)
[2019-06-30] MEDS: BLOOD SUGAR DIAGNOSTIC 1 EACH STRIP VI SCH ×4 (06:44→21:35)
--- NOTE | 2019-06-30 07:00 | NUR ---
RN PM CLOSING NOTE. PATIENT SEEN IN NO APPARENT DDISTRESS. DENIES PAIN. SAFETY MESARUES IN PLACE. WILL ENDORSE POC AND REPORT TO DAY NURSE.
[2019-06-30 07:26] LABS: BASOPHILS # (AUTO) 0.1 /CMM (0.0-0.2); BASOPHILS % (AUTO) 0.7 % (0.0-2.0); EOSINOPHILS % (AUTO) 4.1 % (0.0-6.0); HEMATOCRIT 41 % (39-51); HEMOGLOBIN 13.5 g/dL (13.5-17.5); LYMPHOCYTES % (AUTO) 14.6 % (20.0-44.0); MEAN CORPUSCULAR HGB CONC 34 g/dl (31.0-36.0); MEAN CORPUSCULAR VOLUME 85 fL (80-96); MONOCYTES # (AUTO) 0.5 /CMM (0.1-1.30); MONOCYTES % (AUTO) 3.8 % (2.0-12.0); NEUTROPHILS # (AUTO) 10.3 /CMM (1.8-8.9); NEUTROPHILS % (AUTO) 76.8 % (43.0-81.0); PLATELET COUNT (AUTO) 283 /CMM (150-450); RED BLOOD CELL COUNT(AUTO) 4.78 MIL/uL (4.5-6.0); WHITE BLOOD COUNT (AUTO) 13.4 K/uL (4.3-11.0)
[2019-06-30 07:46] LABS: CALCIUM, SERUM 8.9 mg/dL (8.5-10.1); CREATININE 1.2 mg/dL (0.6-1.3); POTASSIUM 4.3 mmol/L (3.5-5.1)
[2019-06-30 08:00] VITALS: BP 150/68
[2019-06-30] MEDS: CITALOPRAM HYDROBROMIDE 20 MG TABLET PO SCH (08:39)
[2019-06-30] MEDS: CHOLECALCIFEROL 1,000 UNIT TABLET (VIT D3) PO SCH (08:39)
[2019-06-30] MEDS: AMLODIPINE BESYLATE 10 MG TABLET PO SCH (08:39)
[2019-06-30] MEDS: BACLOFEN (10 MG) 10 MG TABLET PO SCH ×3 (08:39→17:05)
[2019-06-30] MEDS: ASPIRIN 81 MG TAB.CHEW PO SCH (08:40)
[2019-06-30] MEDS: ENOXAPARIN SODIUM 40 MG/0.4 ML DISP.SYRIN SQ SCH (08:46)
[2019-06-30 16:00] VITALS: BP 153/68
[2019-06-30] MEDS: *INSULIN REGULAR(HUMULIN R)HUM 100 UNIT/ML VIAL SQ PRN ×2 (17:11→21:34)
--- NOTE | 2019-06-30 19:05 | NUR ---
MS RN OPENING PM NOTE BEDSIDE REPORT RECIEVED FROM MERARI SHELBY. Patient awake, alert and verbally responsive. PRIMARILY Turkmen SPEAKING BUT UNDERSTANDS CROATIAN. REVIEWED POC QUESTIONS CONCERNS ADDRESSED. No SOB noted. No signs and symptoms of distress. HOB SEMI FOWLERS POSITION. Safety measures in place. Bed in lowest position with bed alarm on and call light within reach SR X2. PT ON AIR MATTRESS. IV RUNNING TO LEFT AC #20 DRESSING CHANGED TODAY WITH NO S/S OF INFILTATION WITH NS AT 75 INFUSING. WILL CONT TO MONITOR.
[2019-06-30 20:00] VITALS: BP 92/50
[2019-07-01] MEDS: BLOOD SUGAR DIAGNOSTIC 1 EACH STRIP VI SCH ×4 (06:21→22:00)
[2019-07-01] MEDS: INSULIN REGULAR, HUMAN 100 UNIT/ML 3 ML VIAL SQ PRN ×2 (06:27→12:05)
[2019-07-01] MEDS: PANTOPRAZOLE 40 MG TABLET.DR PO SCH (06:28)
--- NOTE | 2019-07-01 07:13 | NUR ---
RN PM CLOSING NOTE. PATIENT SEEN IN NO APPARENT DISTRESS. DENIES PAIN. SAFETY MEASURES IN PLACE. IV HEPLOCKED NO S/S OF INFILTRATIONS. FC DRAINING DARK PINK URINE. WILL ENDORSE POC AND REPORT TO DAY NURSE.
[2019-07-01 08:00] VITALS: BP 158/76
--- NOTE | 2019-07-01 08:00 | NUR ---
RN NOTES RECEIVED PATIENT N THE BED A/O X3 FRENCH SPEAKER, PATIENT ROOM AIR, NO ACUTE RESPIRATORY DISTRESS, V/S STABLE. PATIENT PARAPLEGIC AIR MATTRESS, IV ACCESS ON LEFT AC AREA INTACT INFUSING MERREM 200 ML/HR . SCHEDULED MEDICATION, V/S STABLE, ASSIST PATIENT TURN AND REPOSITION Q 2 HR. F/C DRAINING RADISH YELLOW OUTPUT, PATIENT REFUSED PAIN AT THIS TIME, NEEDS ATTENDED AND ANTICIPATED, PATIENT TOLERATED BREAKFAST WELL, SAFETY PRECAUTION MAINTAINED ALL THE TIME.I
[2019-07-01 08:39] LABS: BASOPHILS # (AUTO) 0.2 /CMM (0.0-0.2); BASOPHILS % (AUTO) 1.3 % (0.0-2.0); EOSINOPHILS % (AUTO) 3.3 % (0.0-6.0); HEMATOCRIT 42 % (39-51); HEMOGLOBIN 14.1 g/dL (13.5-17.5); LYMPHOCYTES # (AUTO) 2.6 /CMM (0.8-4.8); LYMPHOCYTES % (AUTO) 18.6 % (20.0-44.0); MEAN CORPUSCULAR HGB CONC 34 g/dl (31.0-36.0); MEAN CORPUSCULAR VOLUME 86 fL (80-96); MONOCYTES # (AUTO) 0.4 /CMM (0.1-1.30); MONOCYTES % (AUTO) 3.1 % (2.0-12.0); NEUTROPHILS # (AUTO) 10.5 /CMM (1.8-8.9); NEUTROPHILS % (AUTO) 73.7 % (43.0-81.0); PLATELET COUNT (AUTO) 301 /CMM (150-450); RED BLOOD CELL COUNT(AUTO) 4.91 MIL/uL (4.5-6.0); WHITE BLOOD COUNT (AUTO) 14.2 K/uL (4.3-11.0)
[2019-07-01] MEDS: MEROPENEM 1 G in IV NS 0.9% 100 ML IV SCH ×2 (09:20→17:08)
[2019-07-01] MEDS: BACLOFEN (10 MG) 10 MG TABLET PO SCH ×3 (09:21→17:13)
[2019-07-01] MEDS: ASPIRIN 81 MG TAB.CHEW PO SCH (09:21)
[2019-07-01] MEDS: CHOLECALCIFEROL 1,000 UNIT TABLET (VIT D3) PO SCH (09:21)
[2019-07-01] MEDS: AMLODIPINE BESYLATE 10 MG TABLET PO SCH (09:21)
[2019-07-01] MEDS: ENOXAPARIN SODIUM 40 MG/0.4 ML DISP.SYRIN SQ SCH (09:22)
[2019-07-01] MEDS: CITALOPRAM HYDROBROMIDE 20 MG TABLET PO SCH (09:24)
--- NOTE | 2019-07-01 10:47 | NUR ---
rn notes get order from hospitalist to d/c Godinez catheter at tis time, order taken and carried out.
--- NOTE | 2019-07-01 10:49 | NUR ---
RN NOTES REMOVED F/C 900 ML OUTPUT, PATIENT TOLERATED WELL. ENCOURAGED PATIENT TO INCREASE FLUID INTAKE, PATIENT ON AIR MATTRESS, ASSIST TURN AND REPOSTION Q 2 HR. SAFETY PRECAUTION MAINTAINED ALL THE TIME.
--- NOTE | 2019-07-01 12:06 | NUR ---
RN NOTES BS-217 MG/DL COVERAGE GIVEN , ALSO ADMINISTERED SCHEDULED MEDICATION, PATIENT EATING LUNCH, MONITORING INTAKE, ASSIST TURN AND REPOSITION 2 HR.
[2019-07-01 16:00] VITALS: BP 141/66
--- NOTE | 2019-07-01 17:00 | NUR ---
RN NOTES BS-117 MG/DL, PATIENT EATING DINNER, V/S TAKEN STABLE, INFUSING MARRAM 200 ML/HR AT THIS TIME ON RIGHT AC AREA INTACT, PATIENT URINATED AFTER REMOVAL OF MERAZ, ASSIST TURN AND REPOSITION Q 2 HR, CALL LIGHT WITHIN TO REACH. CONTINUED MONITORING.
--- NOTE | 2019-07-01 18:46 | NUR ---
rn notes patient resting in the bed no acute respiratory distress, v/s stable, refused pain at this time, infusing Merrem 200 ml/hr on left ac area intact, assist turn and reposition q 2 hr.safety precaution maintained all the time, endorsed oncoming nurse follow plan of care.
--- NOTE | 2019-07-01 19:10 | NUR ---
MS RN NOTES RECEIVED PATIENT N THE BED A/O X3 VIETNAMESE SPEAKER BUT ALSO UNDERSTANDING LEBANESE. RESPIRATIONS EVEN AND UNLABORED WITH NO S/S OF ACUTE DISTRESS OR SOB NOTED. PATIENT PARAPLEGIC AIR MATTRESS. PT WITH IV ACCESS ON LEFT AC SL. NO COMPLAINTS OF PAIN AT THIS TIME. SAFETY MEASURES IN PLACE WITH BED IN LOWEST LOCKED POSITION WITH SIDE RAILS UP X2. CALL LIGHT WITHIN REACH. WILL CONTINUE TO MONITOR.
[2019-07-01 20:16] VITALS: BP 147/65
[2019-07-01] MEDS: *INSULIN REGULAR(HUMULIN R)HUM 100 UNIT/ML VIAL SQ PRN (21:58)
--- NOTE | 2019-07-01 22:40 | NUR ---
RN NOTES ENDORSEMENT GIVEN TO YAHAIRA SHELBY FOR KARL.
--- NOTE | 2019-07-01 23:00 | NUR ---
MS RN NOTES PT SLEEPING. EASILY AROUSABLE. NOT IN ANY DISTRESS. NO SOB NOTED. DENIES ANY PAIN OR DISCOMFORT AT THIS TIME. WITH IV-HL PATENT & INTACT. CALL LIGHT WITHIN REACH. BED IN LOWEST POSITION. SR UP X 3 WITH BED ALARM ON FOR SAFETY. WILL CONTINUE TO MONITOR.
[2019-07-02] MEDS: MEROPENEM 1 G in IV NS 0.9% 100 ML IV SCH ×4 (00:13→23:58)
--- NOTE | 2019-07-02 06:40 | NUR ---
MS RN NOTES AWAKE & RESPONSIVE. NOT IN ANY DISTRESS. NO SOB NOTED. DENIES ANY PAIN OR DISCOMFORT AT THIS TIME. WITH IV-HL PATENT & INTACT. MONITORED ACCORDINGLY. CALL LIGHT WITHIN REACH. BED IN LOWEST POSITION. SR UP X 3 WITH BED ALARM ON FOR SAFETY. WILL ENDORSE TO NEXT SHIFT.
[2019-07-02] MEDS: BLOOD SUGAR DIAGNOSTIC 1 EACH STRIP VI SCH ×4 (06:43→22:04)
[2019-07-02] MEDS: INSULIN REGULAR, HUMAN 100 UNIT/ML 3 ML VIAL SQ PRN ×4 (06:45→22:05)
--- NOTE | 2019-07-02 07:20 | NUR ---
MS RN OPENING NOTE RECEIVED PT IN BED, ALERT AND ORIENTED X4, DENIES CHEST PAIN, SOB, N/V, BREATHING IS EVEN AND UNLABORED ON ROOM AIR, NO ACUTE DISTRESS NOTED AT THIS TIME. LEFT AC #20G IS SALINE LOCKED WITHOUT REDNESS OR SWELLING. ASPIRATION PRECAUTIONS MAINTAINED, ALL NEEDS ATTENDED TO. BED IS LOCKED AND IN LOWEST POSITION, SIDE RAILS UP X2, BED ALARM ON, CALL LIGHT AND POSSESSIONS WITHIN REACH.
[2019-07-02 08:00] VITALS: BP 153/70
[2019-07-02] MEDS: CHOLECALCIFEROL 1,000 UNIT TABLET (VIT D3) PO SCH (08:16)
[2019-07-02] MEDS: BACLOFEN (10 MG) 10 MG TABLET PO SCH ×3 (08:16→16:45)
[2019-07-02] MEDS: AMLODIPINE BESYLATE 10 MG TABLET PO SCH (08:16)
[2019-07-02] MEDS: ASPIRIN 81 MG TAB.CHEW PO SCH (08:16)
[2019-07-02] MEDS: CITALOPRAM HYDROBROMIDE 20 MG TABLET PO SCH (08:16)
[2019-07-02] MEDS: PANTOPRAZOLE 40 MG TABLET.DR PO SCH (08:16)
[2019-07-02] MEDS: ENOXAPARIN SODIUM 40 MG/0.4 ML DISP.SYRIN SQ SCH (08:20)
[2019-07-02 16:00] VITALS: BP 129/67
--- NOTE | 2019-07-02 18:00 | NUR ---
MS RN OPENING NOTE RECEIVED PT IN BED, ALERT AND ORIENTED X4, DENIES CHEST PAIN, SOB, N/V, BREATHING IS EVEN AND UNLABORED ON ROOM AIR, NO ACUTE DISTRESS NOTED AT THIS TIME. LEFT AC #20G IS SALINE LOCKED WITHOUT REDNESS OR SWELLING. CONTINUE TO BE ON ESBL URINE CONTACT ISOLATION PRECAUTIONS MAINTAINED, ALL NEEDS ATTENDED TO. BED IS LOCKED AND IN LOWEST POSITION, SIDE RAILS UP X2, BED ALARM ON, CALL LIGHT AND POSSESSIONS WITHIN REACH.
--- NOTE | 2019-07-02 19:30 | NUR ---
MS RN OPENING NOTES RECEIVED PATIENT FROM MORNING SHIFT, ALERT AND ORIENTED X 4, VERBALLY RESPONSIVE AND ABLE TO FOLLOW DIRECTIONS. BREATHING REGULAR AND UNLABORED ON ROOM AIR. LEFT AC G20 IV LINE INTACT AND PATENT INFUSING WELL, NO BLEEDING AND S/S OF INFILTRATION/INFECTION NOTED. ON IV ATB FOR UTI WITH NO ADVERSE REACTIONS NOTED. CALL LIGHT IN REACH, BED LOW AND LOCKED. CONTINUOUSLY MONITORED.
[2019-07-02 20:00] VITALS: BP 122/58
--- NOTE | 2019-07-03 06:27 | NUR ---
MS RN CLOSING NOTES PATIENT IN BED ALERT AND ORIENTED X 4. AFEBRILE WITH NO S/S OF DISTRESS OBSERVED. VERBALLY RESPONSIVE AND ABLE TO FOLLOW DIRECTIONS. BREATHING REGULAR AND UNLABORED ON ROOM AIR. LEFT AC G20 IV LINE INTACT AND PATENT FLUSHING WELL, NO BLEEDING AND S/S OF INFILTRATION/INFECTION NOTED. MAINTAINED ON CONTACT ISOLATION FOR ESBL URINE, PROPER HAND WASHING AND ISOLATION PRECAUTION OBSERVED. ON IV ATB MERREM 1GM FOR UTI WITH NO ADVERSE REACTIONS NOTED. NO COMPLAINTS OF PAIN/DISCOMFORT WITHIN THE SHIFT. CALL LIGHT IN REACH, BED LOW AND LOCKED. WILL ENDORSE TO MORNING SHIFT FOR DISCHARGE IF ISOLATION ROOM IS AVAILABLE ON SNF AND FOR KARL.
[2019-07-03] MEDS: BLOOD SUGAR DIAGNOSTIC 1 EACH STRIP VI SCH ×4 (06:30→22:39)
[2019-07-03] MEDS: INSULIN REGULAR, HUMAN 100 UNIT/ML 3 ML VIAL SQ PRN ×2 (06:31→11:48)
[2019-07-03] MEDS: PANTOPRAZOLE 40 MG TABLET.DR PO SCH (07:30)
[2019-07-03] MEDS: MEROPENEM 1 G in IV NS 0.9% 100 ML IV SCH ×3 (07:52→23:40)
[2019-07-03 08:00] VITALS: BP 127/64
[2019-07-03] MEDS: CITALOPRAM HYDROBROMIDE 20 MG TABLET PO SCH (08:13)
[2019-07-03] MEDS: BACLOFEN (10 MG) 10 MG TABLET PO SCH ×3 (08:13→16:52)
[2019-07-03] MEDS: AMLODIPINE BESYLATE 10 MG TABLET PO SCH (08:15)
[2019-07-03] MEDS: CHOLECALCIFEROL 1,000 UNIT TABLET (VIT D3) PO SCH (08:15)
[2019-07-03] MEDS: ASPIRIN 81 MG TAB.CHEW PO SCH (08:35)
[2019-07-03] MEDS: ENOXAPARIN SODIUM 40 MG/0.4 ML DISP.SYRIN SQ SCH (08:37)
[2019-07-03 16:00] VITALS: BP 115/50
--- NOTE | 2019-07-03 19:30 | NUR ---
MS RN OPENING NOTES RECEIVED PATIENT IN BED. PATIENT ON CONTACT ISOLATION FOR ESBL URINE. A/O X4. TOELRATING ROOM AIR AT THIS TIME. RESPIRATIONS ARE REGULAR AND UNLABORED. NO SOB NOTED. DENIES PAIN ATTHIS TIME. IV ACCESS IN LEFT AC G20 IV LINE PATENT AND SALINE LOCKED. NO APPARENT DISTRESS AT THIS TIME. CALL LIGHT WITHIN REACH. BED LOW AND LOCKED. WILL CONTINUE TO MONITOR.
[2019-07-03 20:00] VITALS: BP 129/62
--- NOTE | 2019-07-03 22:00 | NUR ---
MS RN NOTE 2200 ACCUCHECK READS BLOOD SUGAR 127. NO INSULIN COVERAGE GIVEN D/T WNL. WILL CONTINUE TO MONITOR.
[2019-07-04] MEDS: BLOOD SUGAR DIAGNOSTIC 1 EACH STRIP VI SCH ×2 (06:45→11:52)
[2019-07-04] MEDS: INSULIN REGULAR, HUMAN 100 UNIT/ML 3 ML VIAL SQ PRN ×2 (06:49→11:46)
--- NOTE | 2019-07-04 07:00 | NUR ---
MS RN CLOSING NOTES PATIENT IS RESTING IN BED. PATIENT ON CONTACT ISOLATION FOR ESBL URINE. A/O X4. REMAINS TOLERATING ROOM AIR. RESPIRATIONS ARE REGULAR AND UNLABORED. NO SOB NOTED THROUGHOUT SHIFT. IV ACCESS MAINTAINED IN LEFT AC G20 IV LINE PATENT AND SALINE LOCKED. NO DISTRESS NOTED THROUGHOUT SHIFT TURN PATIENT Q2H. CALL LIGHT WITHIN REACH. BED LOW AND LOCKED. WILL ENDORSE TO NEXT SHIFT FOR KARL.
--- NOTE | 2019-07-04 07:28 | NUR ---
RN MS OPENING NOTES Received patient on room air, no sob noted, remains a/o x4, LAC #20 remains patent at this time. Patient able to make needs known. Bed at the lowest setting, call light within reach, side rails up x2.
[2019-07-04 08:00] VITALS: BP 145/80
[2019-07-04] MEDS: BACLOFEN (10 MG) 10 MG TABLET PO SCH ×2 (08:05→13:31)
[2019-07-04] MEDS: PANTOPRAZOLE 40 MG TABLET.DR PO SCH (08:05)
[2019-07-04] MEDS: CITALOPRAM HYDROBROMIDE 20 MG TABLET PO SCH (08:05)
[2019-07-04] MEDS: CHOLECALCIFEROL 1,000 UNIT TABLET (VIT D3) PO SCH (08:05)
[2019-07-04 08:06] VITALS: BP 145/80
[2019-07-04] MEDS: AMLODIPINE BESYLATE 10 MG TABLET PO SCH (08:06)
[2019-07-04] MEDS: MEROPENEM 1 G in IV NS 0.9% 100 ML IV SCH (08:06)
[2019-07-04] MEDS: ASPIRIN 81 MG TAB.CHEW PO SCH (08:06)
[2019-07-04] MEDS: ENOXAPARIN SODIUM 40 MG/0.4 ML DISP.SYRIN SQ SCH (08:07)
[2019-07-04 08:20] LABS: BASOPHILS # (AUTO) 0.1 /CMM (0.0-0.2); BASOPHILS % (AUTO) 0.9 % (0.0-2.0); EOSINOPHILS % (AUTO) 6.2 % (0.0-6.0); HEMATOCRIT 40 % (39-51); HEMOGLOBIN 13.3 g/dL (13.5-17.5); LYMPHOCYTES # (AUTO) 2.8 /CMM (0.8-4.8); LYMPHOCYTES % (AUTO) 21.5 % (20.0-44.0); MEAN CORPUSCULAR HGB CONC 33 g/dl (31.0-36.0); MEAN CORPUSCULAR VOLUME 86 fL (80-96); MONOCYTES # (AUTO) 0.5 /CMM (0.1-1.30); MONOCYTES % (AUTO) 3.7 % (2.0-12.0); NEUTROPHILS # (AUTO) 8.7 /CMM (1.8-8.9); NEUTROPHILS % (AUTO) 67.7 % (43.0-81.0); PLATELET COUNT (AUTO) 277 /CMM (150-450); RED BLOOD CELL COUNT(AUTO) 4.62 MIL/uL (4.5-6.0); WHITE BLOOD COUNT (AUTO) 12.8 K/uL (4.3-11.0)
[2019-07-04 08:32] LABS: ALBUMIN 3.2 g/dL (3.4-5.0); BILIRUBIN,TOTAL 0.4 mg/dL (0.2-1.0); CALCIUM, SERUM 9.4 mg/dL (8.5-10.1); CREATININE 1.1 mg/dL (0.6-1.3); MAGNESIUM 2.2 mg/dL (1.8-2.4); PHOSPHORUS 3.7 mg/dL (2.5-4.9); POTASSIUM 4.8 mmol/L (3.5-5.1); TOTAL PROTEIN, SERUM 7.6 g/dL (6.4-8.2)
--- NOTE | 2019-07-04 14:58 | NUR ---
RN MS DISCHARGE NOTES Patient discharged at this time, facility that is taking patient stated that they wanted the IV line intact. Sent patient with IV line on his Left forearm. Patient signed all the paper work necessary for discharge. Patient has all his belongings with him at this time. Patient's vital signs stable, no sob noted. Took patients wound photo and is on the chart.
== END 2019-07-04 15:00 | DRG 469 ==
LOC: ER 21:37 → MED 23:54
PROVIDERS: ADMIT Internal Medicine; ATTEND Internal Medicine
DX: N17.0 Acute kidney failure with tubular necrosis (principal); G93.41 Metabolic encephalopathy; D68.59 Other primary thrombophilia; E11.22 Type 2 diabetes mellitus with diabetic chronic kidney disease; E11.65 Type 2 diabetes mellitus with hyperglycemia; E11.51 Type 2 diabetes mellitus with diabetic peripheral angiopathy without gangrene; G82.20 Paraplegia, unspecified; G83.82 Anterior cord syndrome; I48.0 Paroxysmal atrial fibrillation; N18.9 Chronic kidney disease, unspecified; I12.9 Hypertensive chronic kidney disease with stage 1 through stage 4 chronic kidney disease, or unspecified chronic kidney disease; E78.5 Hyperlipidemia, unspecified; D63.8 Anemia in other chronic diseases classified elsewhere; B96.20 Unspecified Escherichia coli [E. coli] as the cause of diseases classified elsewhere; Z16.12 Extended spectrum beta lactamase (ESBL) resistance; J44.9 Chronic obstructive pulmonary disease, unspecified; K21.9 Gastro-esophageal reflux disease without esophagitis; R31.0 Gross hematuria; N39.0 Urinary tract infection, site not specified; Z79.4 Long term (current) use of insulin; Z79.82 Long term (current) use of aspirin; Z79.899 Other long term (current) drug therapy; M62.569 Muscle wasting and atrophy, not elsewhere classified, unspecified lower leg; I48.91 Unspecified atrial fibrillation; Z79.51 Long term (current) use of inhaled steroids
CPT/HCPCS: 36415; 70450-TC; 71045-TC; 80048-TC; 80053-TC; 80076-TC; 81000-TC; 82962-TC; 83605-TC; 83735-TC; 83880; 84100-TC; 84484-TC; 85025-TC; 85730-TC; 87040-TC; 87081-TC; 87086-TC; 87186-TC; G0378; J0696; J1650; J1815; J2185; J2405; J3475; J7030; J7060